=== PATIENT | female | born 1940 | race Caucasian/White ===

== ENCOUNTER 2018-06-22 02:18 | Inpatient (IN) ==
[2018-06-22 02:37] LABS: Baso # (Auto) 0.1 th/mm3 (0.0-0.2); Baso % (Auto) 0.8 % (0.0-2.0); Eos # (Auto) 0.2 th/mm3 (0.0-0.4); Hematocrit 38.6 % (35.0-46.0); Hemoglobin 12.9 gm/dL (11.6-15.3); Lymph # (Auto) 2.2 th/mm3 (1.0-4.8); Lymph % (Auto) 28.3 % (9.0-44.0); Mean Corpuscular HGB Conc 33.4 % (32.0-36.0); Mean Corpuscular Hemoglobin 31.2 pg (27.0-34.0); Mean Corpuscular Volume 93.2 fL (80.0-100.0); Mono # (Auto) 0.5 th/mm3 (0.0-0.9); Mono % (Auto) 6.8 % (0.0-8.0); Neut # (Auto) 4.6 th/mm3 (1.8-7.7); Neut % (Auto) 61.1 % (16.0-70.0); Platelet Count 273 th/mm3 (150-450); Red Blood Count 4.15 mil/mm3 (4.00-5.30); Red Cell Distribution Width 12.7 % (11.6-17.2); White Blood Count 7.6 th/mm3 (4.0-11.0)
[2018-06-22 02:43] LABS: Potassium 4.6 meq/L (3.5-5.1)
[2018-06-22 02:46] LABS: Calcium 8.7 mg/dL (8.5-10.1)
[2018-06-22 02:47] LABS: Activated Partial Thrombo Time 22.9 sec (24.3-30.1); INR 1.1 Ratio; Prothrombin Time 10.7 sec (9.8-11.6)
[2018-06-22 02:47] LABS: Carbon Dioxide 23.2 meq/L (21.0-32.0)
--- NOTE | 2018-06-22 02:57 | CT ---
EXAM DATE: 06/22/2018 2:28 AM EDT AGE/SEX: 78 years / Female INDICATIONS: Stroke alert. Left side weakness. Slurred speech. CLINICAL DATA: This is the patient's initial encounter. Patient reports that signs and symptoms have been present for 2 days and indicates a pain score of Nonresponsive. MEDICAL/SURGICAL HISTORY: Non-responsive. Non-responsive. RADIATION DOSE: 53.90 CTDI (mGy) COMPARISON: No prior exams available for comparison. TECHNIQUE: CT of the head without contrast. Using automated exposure control and adjustment of the mA and/or kV according to patient size, radiation dose was kept as low as reasonably achievable to ob tain optimal diagnostic quality images. DICOM format image data is available electronically for revi ew and comparison. FINDINGS: Hypodensities in the right posterior parietal lobe, right posterior occipital lobe, and left cerebell ar hemisphere appear to be accompanied by volume loss and likely represent old insults. No acute intr acranial hemorrhage identified. No mass effect or midline shift. Ventricles within normal limits for age. No intracranial mass lesion or evidence of acute infarct. 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 Paranasal sinuses are clear. No evidence of fracture. CONCLUSION: 1. Likely old insults in the right parietal lobe, right occipital lobe, and left cerebellar hemisphe re. 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 2. No acute intracranial findings identified. Report was called by Dr. Salvador to Dr. Souza at 0250 Electronically signed by: Darian Salvador MD 06/22/2018 2:55 AM EDT
[2018-06-22 02:58] LABS: Creatine Kinase 108 U/L (26-192)
[2018-06-22] MEDS ORDERED: Alteplase Bolus 9 MG/9 ML Syringe IV.PUSH ONE (02:58)
[2018-06-22] MEDS ORDERED: ALTEPLASE DRIP IV.SIG ONE (02:58)
--- NOTE | 2018-06-22 03:12 | XR ---
EXAM DATE: 06/22/2018 2:23 AM EDT AGE/SEX: 78 years / Female INDICATIONS: Stroke alert, short of breath. CLINICAL DATA: This is the patient's initial encounter. Patient reports that signs and symptoms have been present for 1 day and indicates a pain score of Nonresponsive. MEDICAL/SURGICAL HISTORY: Non-responsive. CABG. COMPARISON: No prior exams available for comparison. FINDINGS: Single AP view the chest. Median sternotomy wires are present. Mild patchy perihilar opaci ty in the left mid and lower lung. The lungs are otherwise clear. Cardiomediastinal silhouette withi n normal limits. No evidence of pleural effusion or pneumothorax. CONCLUSION: Minimal patchy left perihilar lung opacity. Electronically signed by: Darian Salvador MD 06/22/2018 3:11 AM EDT
[2018-06-22] MEDS: niCARdipine Inj 25 MG in Sodium Chlor 0.9% Inj 240 ML IV.CONT PRN ×4 (03:20→17:14)
--- NOTE | 2018-06-22 03:35 | CT ---
EXAM DATE: 06/22/2018 2:28 AM EDT AGE/SEX: 78 years / Female INDICATIONS: Stroke alert. Left side weakness. Slurred speech. CLINICAL DATA: This is the patient's initial encounter. Patient reports that signs and symptoms have been present for 1 day and indicates a pain score of Nonresponsive. MEDICAL/SURGICAL HISTORY: Non-responsive. Non-responsive. RADIATION DOSE: 42.29 CTDI (mGy) ; Combined studies COMPARISON: [facility], CT HEAD W/O CONTRAST, 06/22/2018. . TECHNIQUE: Volumetric scanning was performed using a multi-row detector CT scanner during bolus infu jo of 75 ml Omnipaque 350 (iohexol) nonionic water-soluble contrast as a cumulative dose for multi ple exams. The data was post processed with a variety of visualization algorithms including full vo lume maximum intensity projection, multi-planar sliding thin slab reformation, curved planar reformat ion, and surface rendering techniques. Using automated exposure control and adjustment of the mA and /or kV according to patient size, radiation dose was kept as low as reasonably achievable to obtain o ptimal diagnostic quality images. DICOM format image data is available electronically for review and comparison. FINDINGS: There is occlusion of the right internal carotid artery. The anterior cerebral arteries and middle ce rebral arteries are widely patent. Intracranial portion of the left internal carotid artery is widely patent. Bilateral vertebral arteries are patent. The left vertebral artery is dominant. There is prominent at herosclerotic disease of the proximal basilar artery. Diffuse atherosclerotic disease of the right po sterior cerebral artery is seen. There is a patent posterior communicating artery on the right. Proxi mal occlusion of the left posterior cerebral artery 3 cm from its origin. It reconstitutes distally v ia collaterals. CONCLUSION: 1. 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 2. 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 3. Occlusion of the proximal left posterior cerebral artery. It reconstitutes via collaterals. 4. Anterior cerebral arteries and middle cerebral arteries are widely patent. Electronically signed by: Darian Salvador MD 06/22/2018 3:34 AM EDT
--- NOTE | 2018-06-22 03:43 | CT ---
EXAM DATE: 06/22/2018 2:28 AM EDT AGE/SEX: 78 years / Female INDICATIONS: Stroke alert. Left side weakness. Slurred speech. CLINICAL DATA: This is the patient's initial encounter. Patient reports that signs and symptoms have been present for 1 day and indicates a pain score of Nonresponsive. MEDICAL/SURGICAL HISTORY: Non-responsive. Non-responsive. RADIATION DOSE: 42.29 CTDI (mGy) ; Combined studies COMPARISON: [facility], CTA HEAD W CONTRAST W 3D, 06/22/2018. . TECHNIQUE: Volumetric scanning was performed using a multirow detector CT scanner during bolus infus ion of 75 ml Omnipaque 350 (iohexol) nonionic water-soluble contrast as a cumulative dose for multip le exams. The data was postprocessed with a variety of visualization algorithms including full-volu me maximum intensity projection, multiplanar sliding thin-slab reformation, curved-planar reformation , and surface-rendering techniques. Using automated exposure control and adjustment of the mA and/or kV according to patient size, radiation dose was kept as low as reasonably achievable to obtain opti mal diagnostic quality images. DICOM format image data is available electronically for review and co mparison. Percent stenosis is calculated using the diameter of the stenotic region over the diameter of the nor mal distal internal carotid artery. FINDINGS: Aortic Arch: There is a three-vessel origin of the great vessels from the aorta. No evidence of ost ial narrowing Right Carotid: There is occlusion of the right internal carotid artery at its origin. The right comm on carotid artery is widely patent. External carotid artery is widely patent. Left Carotid: The common carotid artery is widely patent. Calcified plaque is seen at the carotid bu lb. No evidence of high-grade stenosis. Internal carotid artery and external carotid artery are widel y patent. Vertebrals: Left vertebral artery is dominant. There is prominent plaque and moderate narrowing of t he proximal left vertebral artery. Prominent plaque and moderate to severe narrowing of the proximal right vertebral artery near its origin. Severe narrowing of the right vertebral artery at the level o f the C6 vertebra. CONCLUSION: 1. Occlusion of the right internal carotid artery at its origin. 2. Calcified plaque at the left carotid bulb but no evidence of significant carotid stenosis on the left. 3. Prominent atherosclerotic disease of the proximal vertebral arteries. Electronically signed by: Darian Salvador MD 06/22/2018 3:41 AM EDT
[2018-06-22] MEDS ORDERED: Potassium Phosphate 500 MG Soluble Tablet PO PRN ×2 (04:19)
[2018-06-22] MEDS ORDERED: Potassium Chlor 20 mEq Premix 20 MEQ/100 ML PIGGYBACK IV.SIG PRN ×2 (04:19)
[2018-06-22] MEDS ORDERED: Bisacodyl 10 MG Supp RECTAL PRN (04:19)
[2018-06-22] MEDS ORDERED: Potassium Phosphate Inj 30 MMOL in Sodium Chlor 0.9% Inj 250 ML IV.SIG PRN (04:19)
[2018-06-22] MEDS ORDERED: hydrALAZINE HCl Inj 20 MG/ML Vial IV.PUSH PRN (04:19)
[2018-06-22] MEDS ORDERED: Magnesium Sulfate Inj 2 GM in Sodium Chlor 0.9% Inj 96 ML IV.SIG PRN (04:19)
[2018-06-22] MEDS ORDERED: Potassium Chlor 40 mEq Premix 40 MEQ/100 ML PIGGYBACK IV.SIG PRN ×2 (04:19)
[2018-06-22] MEDS ORDERED: Magnesium Sulfate Inj 4 GM in Sodium Chlor 0.9% Inj 92 ML IV.SIG PRN (04:19)
[2018-06-22] MEDS ORDERED: Magnesium Oxide 400 MG Tablet PO PRN (04:19)
[2018-06-22] MEDS ORDERED: Potassium Chloride 25 MEQ Effervescent Tablet PO PRN (04:19)
[2018-06-22] MEDS ORDERED: Acetaminophen 325 MG Tablet PO PRN (04:19)
[2018-06-22] MEDS ORDERED: Sodium Phosphate Inj 30 MMOL in Sodium Chlor 0.9% Inj 250 ML IV.SIG PRN (04:19)
--- NOTE | 2018-06-22 04:44 | ED ---
HPI General Chief complaint: Stroke Alert Stated complaint: EVAC/Stroke Allert Time Seen by Provider: 06/22/18 02:22 Source: patient and EMS Mode of arrival: EMS Limitations: no limitations and physical limitation History of Present Illness HPI Narrative: Patient presents with history of confusion of approximately 1 hour prior to arrival. Patient initially had some slurred speech and also some left-sided weakness. called EMS and they transported her here. On arrival patient was alert and functional and told this came suddenly just prior to 's calling EMS to pick her up. No history of CVA. Patient has a history of cardiac bypass, hypertension and diabetes. On presentation patient had hypertension. Related Data Home Medications Medication Instructions Recorded Confirmed insulin NPH and regular human 10 unit SUBCUT QPM 06/22/18 06/22/18 [Novolin 70/30 U-100 Insulin] insulin NPH and regular human 20 unit SUBCUT DAILY 06/22/18 06/22/18 [Novolin 70/30 U-100 Insulin] lisinopril 20 mg PO DAILY 06/22/18 06/22/18 losartan 100 mg PO DAILY 06/22/18 06/22/18 metoprolol succinate 50 mg PO DAILY 06/22/18 06/22/18 timolol maleate 1 drp OPHTHALMIC (EYE) BID 06/22/18 06/22/18 Allergies Allergy/AdvReac Type Severity Reaction Status Date / Time No Known Allergies Allergy Verified 06/22/18 02:24 Review of Systems ROS: all other systems reviewed are negative [facility] Medical History Medical History Diabetes (Acute) Glaucoma (Acute) Hypertension (Acute) Surgical History Surgical History Hx of CABG (Acute) Social History Social History Substance History: No History of Abuse Second Hand Smoke Exposure: No Smoking Status: Never smoker How Often Do You Have a Drink Containing Alcohol: Never Recent Travel in [facility] within the Last 8 Weeks: No Recent Out of Country Travel within the Last 8 Weeks: No Exam Narrative Exam Narrative: GENERAL: Alert and conversive on initial presentation SKIN: Focused skin assessment warm/dry. HEAD: Atraumatic. Normocephalic. EYES: Pupils equal and round. No scleral icterus. No injection or drainage. ENT: No nasal bleeding or discharge. Mucous membranes pink and moist. NECK: Trachea midline. No JVD. No bruit. Decrease carotid on right. CARDIOVASCULAR: Regular rate and rhythm. No murmur appreciated. RESPIRATORY: No accessory muscle use. Clear to auscultation. Breath sounds equal bilaterally. GASTROINTESTINAL: Abdomen soft, non-tender, nondistended. Hepatic and splenic margins not palpable. MUSCULOSKELETAL: No obvious deformities. No clubbing. No cyanosis. No edema. NEUROLOGICAL: Awake and alert. Limited left facial and lower extremity weakness. Significant weakness PSYCHIATRIC: Appropriate mood and affect; insight and judgment normal. However after presentation patient was last responsive and alert Course Reevaluation(s) Reevaluation #1: Patient had significant hypertension and had to reduce prior to TPA injections. CTA shows complete obstruction of right carotid. Discussed again with neurology, Time: 03:50 Reevaluation #2: Still has moderate weakness to left upper extremity : Minimal weakness to left face and lower extremity. Case discussed with Dr. Evert [place], ICU and also then Dr. Moris Nettles, interventional radiology. Patient sending emergency to ER and then ICU or radiology. However, it appears that patient is not a candidate for interventional radiology. 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 Hypertension was treated and patient was given TPA. Patient is not a candidate for interventional radiology, as per Dr. Moris Nettles Medical Screen Exam Complete: Yes Emergency Medical Condition: Yes Lab Data Result diagrams: 06/22/18 02:25 06/22/18 02:38 Lab Results 06/22/18 06/22/18 06/22/18 Range/Units 02:25 02:25 02:25 CBC w Diff Auto diff final WBC 7.6 (4.0-11.0) th/mm3 RBC 4.15 (4.00-5.30) mil/mm3 Hgb 12.9 (11.6-15.3) gm/dL Hct 38.6 (35.0-46.0) % MCV 93.2 (80.0-100.0) fL MCH 31.2 (27.0-34.0) pg MCHC 33.4 (32.0-36.0) % RDW 12.7 (11.6-17.2) % Plt Count 273 (150-450) th/mm3 MPV 8.0 (7.0-11.0) fL Neut % (Auto) 61.1 (16.0-70.0) % Lymph % (Auto) 28.3 (9.0-44.0) % Clarke % (Auto) 6.8 (0.0-8.0) % Eos % (Auto) 3.0 (0.0-4.0) % Baso % (Auto) 0.8 (0.0-2.0) % Neut # (Auto) 4.6 (1.8-7.7) th/mm3 Lymph # (Auto) 2.2 (1.0-4.8) th/mm3 Clarke # (Auto) 0.5 (0.0-0.9) th/mm3 Eos # (Auto) 0.2 (0.0-0.4) th/mm3 Baso # (Auto) 0.1 (0.0-0.2) th/mm3 WBC Differential . Differential Comment . PT 10.7 (9.8-11.6) sec INR 1.1 Ratio APTT 22.9 L (24.3-30.1) sec Fibrinogen 364 (227-377) mg/dL Sodium (136-145) meq/L Potassium (3.5-5.1) meq/L Chloride (98-107) meq/L Carbon Dioxide (21.0-32.0) meq/L Anion Gap (5-15) meq/L BUN (7-18) mg/dL Creatinine (0.50-1.00) mg/dL Estimated GFR (>89) mL/min Random Glucose (74-106) mg/dL Calcium (8.5-10.1) mg/dL Total Creatine Kinase 108 (26-192) U/L Troponin I Less than 0.02 L (0.02-0.05) ng/mL Blood Type Blood Type Recheck Antibody Screen 06/22/18 06/22/18 Range/Units 02:25 02:38 CBC w Diff WBC (4.0-11.0) th/mm3 RBC (4.00-5.30) mil/mm3 Hgb (11.6-15.3) gm/dL Hct (35.0-46.0) % MCV (80.0-100.0) fL MCH (27.0-34.0) pg MCHC (32.0-36.0) % RDW (11.6-17.2) % Plt Count (150-450) th/mm3 MPV (7.0-11.0) fL Neut % (Auto) (16.0-70.0) % Lymph % (Auto) (9.0-44.0) % Clarke % (Auto) (0.0-8.0) % Eos % (Auto) (0.0-4.0) % Baso % (Auto) (0.0-2.0) % Neut # (Auto) (1.8-7.7) th/mm3 Lymph # (Auto) (1.0-4.8) th/mm3 Clarke # (Auto) (0.0-0.9) th/mm3 Eos # (Auto) (0.0-0.4) th/mm3 Baso # (Auto) (0.0-0.2) th/mm3 WBC Differential Differential Comment PT (9.8-11.6) sec INR Ratio APTT (24.3-30.1) sec Fibrinogen (227-377) mg/dL Sodium 137 (136-145) meq/L Potassium 4.6 (3.5-5.1) meq/L Chloride 106 (98-107) meq/L Carbon Dioxide 23.2 (21.0-32.0) meq/L Anion Gap 8 (5-15) meq/L BUN 33 H (7-18) mg/dL Creatinine 1.80 H (0.50-1.00) mg/dL Estimated GFR 27 L (>89) mL/min Random Glucose 127 H (74-106) mg/dL Calcium 8.7 (8.5-10.1) mg/dL Total Creatine Kinase (26-192) U/L Troponin I (0.02-0.05) ng/mL Blood Type O Positive Blood Type Recheck Not needed Antibody Screen Negative Imaging Data Radiologist's impression: Chest X-Ray 06/22/18 02:23 CONCLUSION: Minimal patchy left perihilar lung opacity. Head CT 06/22/18 02:23 CONCLUSION: 1. Likely old insults in the right parietal lobe, right occipital lobe, and left cerebellar hemisphere. 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 2. No acute intracranial findings identified. Report was called by Dr. Salvador to Dr. Souza at 0250 Head CTA 06/22/18 02:23 CONCLUSION: 1. 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 2. 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 3. Occlusion of the proximal left posterior cerebral artery. It reconstitutes via collaterals. 4. Anterior cerebral arteries and middle cerebral arteries are widely patent. Neck CTA 06/22/18 02:23 CONCLUSION: 1. Occlusion of the right internal carotid artery at its origin. 2. Calcified plaque at the left carotid bulb but no evidence of significant carotid stenosis on the left. 3. Prominent atherosclerotic disease of the proximal vertebral arteries. Discharge Plan Discharge Disposition Patient Disposition: 02 Transfer To [facility] [place] Physicians Team ED Provider: Darian Souza Primary Care Provider: Db Cope Attending Provider: Christopher Aragon Status ED Status: Admitted Patient
--- NOTE | 2018-06-22 05:41 | P.HPCC ---
History of Present Illness Service: Critical Care Medicine Primary Care Physician: Db Cope MD Chief Complaint: altered mentation History of Present Illness: 78yF who presented to the [facility] emergency department with left-sided weakness. I spoke with the ER physician at 4:03am. Per the report from the ER physician, last seen normal time was 90 minutes prior to arrival. Documented evaluation time by ER physician was 2:22am, suggestive of [id number] time of ~1am/12:50am. Decision at that time was to administer systemic TPA. Per chart record, TPA given at 3:35am. Documented initial NIHSS was 1. CTA head/ neck shows completely occluded right ICA, but patent intracranial vessels. I discussed the case with Dr. Moris Nettles who does not see any benefit from endovascular intervention, which I agree with. I discussed the case again with [facility] and recommended emergent transfer to [facility] ICU. I was present on arrival to the ICU at 5:15am. On my initial evaluation, she was aphasic, with a dense left-sided hemiparesis, and dense left-sided neglect. My repeat bedside NIHSS was 23. I asked the nurses to repeat a formal nursing NIHSS assessment and their documented assessment was a 28. I immediately ordered STAT repeat non -contrasted head CT which demonstrates a new parietal intraparenchymal hemorrhage. I also discussed the case with Dr. Hopson who agreed with repeat head CT. Due to the patient's altered mentation, no additional information is available from her. ROS unobtainable. Inpatient Certification: I certify that the inpatient services were ordered in accordance with Medicare regulations governing the order. This includes certification that hospital inpatient services are reasonable and necessary and in the case of services not specified as inpatient-only under 42 CFR 419.22(n), that they are appropriately provided as inpatient services in accordance to with the 2-midnight benchmark under 43 CFR 412.3(e) Estimated Total Length of Stay (Days): 7 Plans for Post Hospital Care: Not yet determined Review of Systems unobtainable due to mental condition PMFSH - History History Provided By: Medical Record, Consumer Educator / EMT - Medical / Surgical Hx Neg / Unobtainable Medical Problems Denied: Unable to Obtain Surgical History: Unable to Obtain - Medical History Medical History: Medical History (Last Reviewed 06/22/18 @ 06:19 by Christopher Aragon MD) Diabetes Glaucoma Hypertension - Surgical History Surgical History: Surgical History (Last Reviewed 06/22/18 @ 06:19 by Christopher Aragon MD) Hx of CABG - Family History Family History: Family History (Last Updated 06/22/18 @ 06:19 by Christopher Aragon MD) Other Family history non-contributory - Social History I have reviewed the patient's Social History: Yes - Tobacco History Second Hand Smoke Exposure: No Tobacco Use In Past 30 Days: No Smoking Status: Never smoker - Alcohol History How Often Do You Have a Drink Containing Alcohol: Never - Substance Use History Substance History: No History of Abuse - Travel History Recent Travel in the [place] Within the Last 8 Weeks: No Recent Travel Out of the Country Within the Last 8 Weeks: No - Immunization History Tetanus Immunization: Unsure Hx Influenza Vaccine This Season: No Medications and Allergies Active Medications: Active Medications Acetaminophen (Tylenol) 650 mg PO Q6H PRN PRN Reason: TEMPERATURE > 101 F Albuterol (Duoneb Neb (Prn)) 1 ampul NEB Q2HR NEB PRN PRN Reason: WHEEZING Atorvastatin Calcium (Lipitor) 80 mg PO DAILY JOSE Bisacodyl (Dulcolax Supp) 10 mg RECTAL DAILY PRN PRN Reason: if no BM in last 24h Chlorhexidine Gluconate (Chlorhexidine 2% Cloth) 3 pack TOPICAL DAILY@0400 JOSE Stop: 06/28/18 03:59 Chlorhexidine Gluconate (Chlorhexidine 2% Cloth) 3 pack TOPICAL DAILY@0400 PRN PRN Reason: Extra cloth needed Stop: 06/28/18 03:59 Famotidine (Pepcid) 20 mg PO BID JOSE Hydralazine HCl (Apresoline Inj) 10 mg IV.PUSH Q30M PRN PRN Reason: sbp > 180 Sodium Chloride (Ns Inj) 1,000 mls @ 70 mls/hr IV.CONT .[id number] JOSE Sodium Nitroprusside 50 mg/ (Dextrose) 250 mls @ 7.63 mls/hr IV.CONT TITRATE PRN; Protocol PRN Reason: BLOOD PRESSURE MANAGEMENT Nicardipine HCl 25 mg/ Sodium (Chloride) 250 mls @ 50 mls/hr IV.CONT TITRATE PRN; Protocol PRN Reason: Per Protocol Last Titration: 06/22/18 04:35 Dose: 5 mg/hr, 50 mls/hr Magnesium Sulfate 4 gm/ Sodium (Chloride) 100 mls @ 50 mls/hr IV.SIG UNSCH PRN PRN Reason: For Magnesium 0.9 - 1.1 mg/dL Magnesium Sulfate 2 gm/ Sodium (Chloride) 100 mls @ 50 mls/hr IV.SIG UNSCH PRN PRN Reason: For Magnesium 1.2 - 1.6 mg/dL Sodium Chloride (Ns Inj) 1,000 mls @ 84 mls/hr IV.CONT .[id number] JOSE Potassium Chloride (Kcl 40 Meq Premix Inj) 40 meq in 100 mls @ 25 mls/hr IV.SIG Q2H PRN PRN Reason: For Potassium 2.8 - 3.2 mEq/L Potassium Chloride (Kcl 20 Meq Premix Inj) 20 meq in 100 mls @ 50 mls/hr IV.SIG Q2H PRN PRN Reason: For Potassium 3.3 - 3.5 mEq/L Potassium Chloride (Kcl 40 Meq Premix Inj) 40 meq in 100 mls @ 25 mls/hr IV.SIG UNSCH PRN PRN Reason: For Potassium 3.3 - 3.5 mEq/L Potassium Chloride (Kcl 20 Meq Premix Inj) 20 meq in 100 mls @ 50 mls/hr IV.SIG Q2H PRN PRN Reason: For Potassium 2.8 - 3.2 mEq/L Sodium Phosphate 30 mmol/ (Sodium Chloride) 260 mls @ 42 mls/hr IV.SIG UNSCH PRN PRN Reason: For Phosphorus < 2.5 mg/dL Potassium Phosphate 30 mmol/ (Sodium Chloride) 260 mls @ 42 mls/hr IV.SIG UNSCH PRN PRN Reason: SEE LABEL COMMENTS Labetalol HCl (Trandate Inj) 10 mg IV.PUSH Q30M PRN PRN Reason: sbp > 180 Lactulose (Lactulose Liq) 30 ml PO BID JOSE Magnesium Oxide (Mag-Ox) 800 mg PO UNSCH PRN PRN Reason: For Magnesium 1.2 - 1.6 mg/dL Methylprednisolone (Medrol) 24 mg PO DAILY JOSE Ondansetron HCl (Zofran Inj) 4 mg IV.PUSH Q6H PRN PRN Reason: NAUSEA OR VOMITING Polyethylene Glycol (Miralax) 17 gm PO BID JOSE Potassium Bicarb/Potassium Chloride (K-Lyte Cl Eff) 50 meq PO UNSCH PRN PRN Reason: For Potassium 3.3 - 3.5 mEq/L Potassium Phosphate (K-Phos Original) 2,000 mg PO Q4H PRN PRN Reason: Phosphorus Less Than 2.5 mg/dL Potassium Phosphate (K-Phos Original) 2,000 mg PO UNSCH PRN PRN Reason: SEE LABEL COMMENTS Senna/Docusate Sodium (Julisa-Colace) 1 tab PO BID JOSE Sodium Chloride (Ns Flush) 2 ml IV.FLUSH UNSCH PRN PRN Reason: FLUSH AFTER USING IV ACCESS Allergies Allergy/AdvReac Type Severity Reaction Status Date / Time No Known Allergies Allergy Verified 06/22/18 02:24 Home Medications Medication Instructions Recorded Confirmed Type insulin NPH and regular human 10 unit SUBCUT QPM 06/22/18 06/22/18 History [Novolin 70/30 U-100 Insulin] insulin NPH and regular human 20 unit SUBCUT DAILY 06/22/18 06/22/18 History [Novolin 70/30 U-100 Insulin] lisinopril 20 mg PO DAILY 06/22/18 06/22/18 History losartan 100 mg PO DAILY 06/22/18 06/22/18 History metoprolol succinate 50 mg PO DAILY 06/22/18 06/22/18 History timolol maleate 1 drp OPHTHALMIC (EYE) BID 06/22/18 06/22/18 History Results - Labs CBC & Chem 7: 06/22/18 02:25 06/22/18 02:38 Labs: Short CBC 06/22/18 Range/Units 02:25 WBC 7.6 (4.0-11.0) th/mm3 Hgb 12.9 (11.6-15.3) gm/dL Hct 38.6 (35.0-46.0) % Plt Count 273 (150-450) th/mm3 BMP 06/22/18 02:38 Sodium 137 Potassium 4.6 Chloride 106 Carbon Dioxide 23.2 BUN 33 H Creatinine 1.80 H Calcium 8.7 Cardiac Enzymes 06/22/18 Range/Units 02:25 Total Creatine Kinase 108 (26-192) U/L Troponin I Less than 0.02 L (0.02-0.05) ng/mL - Imaging Impressions Chest X-Ray 06/22/18 02:23 CONCLUSION: Minimal patchy left perihilar lung opacity. Head CT 06/22/18 02:23 CONCLUSION: 1. Likely old insults in the right parietal lobe, right occipital lobe, and left cerebellar hemisphere. 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 2. No acute intracranial findings identified. Report was called by Dr. Salvador to Dr. Souza at 0250 Head CTA 06/22/18 02:23 CONCLUSION: 1. 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 2. 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 3. Occlusion of the proximal left posterior cerebral artery. It reconstitutes via collaterals. 4. Anterior cerebral arteries and middle cerebral arteries are widely patent. Neck CTA 06/22/18 02:23 CONCLUSION: 1. Occlusion of the right internal carotid artery at its origin. 2. Calcified plaque at the left carotid bulb but no evidence of significant carotid stenosis on the left. 3. Prominent atherosclerotic disease of the proximal vertebral arteries. Exam Vital signs: Vital Signs 06/22/18 02:20 06/22/18 02:30 06/22/18 03:00 Temperature 36.6 C Pulse Rate 76 Respiratory Rate 17 Blood Pressure 273/95 H Pulse Oximetry 97 97 97 06/22/18 03:01 06/22/18 03:20 Temperature Pulse Rate 66 Respiratory Rate Blood Pressure 286/135 H Pulse Oximetry 97 Intake & Output 06/21/18 06/21/18 06/22/18 06:59 18:59 06:59 Weight 50.9 kg Narrative: gen: frail elderly female, lying in bed, in distress heent: left sided facial droop. right pupil has evidence of prior cataract surgery, 4mm, reactive. left pupil 2-3mm, reactive. mucous membranes moist. neck: no jvd. trachea midline. chest: equal chest rise. nc o2. cv: normal rate, regular rhythm. sbp 179 mmHg on my eval. abd: soft, nontender, nondistended, no guarding. extr: no edema. distal pulses 2+. neuro: RASS -2. arouses to stimulation. dense expressive aphasia. left side is rigid with complete dense hemiparesis. weakly follows commands in the right lower. withdraws in the right upper. does not follow commands in the right upper - unclear if this is a component of receptive aphasia or not. is seen to move right upper extremity spontaneously. +cough. +gag. + corneals. protects airway. dense left-sided neglect. NOAH 0/5 on left. 4/5 right. Caprini VTE Risk Assessment Caprini VTE Risk Assessment: Moderate/High Risk (score >= 2) VTE Pharmacological Exception Reason: High risk for bleeding Caprini Risk Assessment Model: Point Value = 1 Point Value = 2 Point Value = 3 Point Value = 5 Age 41-60 Minor surgery BMI > 25 kg/m2 Swollen legs Varicose veins or History of unexplained or recurrent spontaneous Oral contraceptives or hormone replacement Sepsis (< 1 month) Serious lung disease, including pneumonia (< 1 month) Abnormal pulmonary function Acute myocardial infarction Congestive heart failure (< 1 month) History of inflammatory bowel disease Medical patient at bed rest Age 61-74 Arthroscopic surgery Major open surgery (> 45 min) Laparoscopic surgery (> 45 min) Malignancy Confined to bed (> 72 hours) Immobilizing plaster cast Central venous access Age >= 75 History of VTE Family history of VTE Factor V Leiden Prothrombin [id number] Lupus anticoagulant Anticardiolipin antibodies Elevated serum homocysteine Heparin-induced thrombocytopenia Other congenital or acquired thrombophilia Stroke (< 1 month) Elective arthroplasty Hip, pelvis, or leg fracture Acute spinal cord injury (< 1 month) Prophylaxis Regimen: Total Risk Factor Score Risk Level Prophylaxis Regimen 0-1 Low Early ambulation 2 Moderate Order ONE of the following: *Sequential Compression Device (SCD) *Heparin 5000 units SQ BID 3-4 Higher Order ONE of the following medications: *Heparin 5000 units SQ TID *Enoxaparin/Lovenox 40 mg SQ daily (WT < 150 kg, CrCl > 30 mL/min) *Enoxaparin/Lovenox 30 mg SQ daily (WT < 150 kg, CrCl > 10-29 mL/min) *Enoxaparin/Lovenox 30 mg SQ BID (WT < 150 kg, CrCl > 30 mL/min) AND/OR *Sequential Compression Device (SCD) 5 or more Highest Order ONE of the following medications: *Heparin 5000 units SQ TID (Preferred with Epidurals) *Enoxaparin/Lovenox 40 mg SQ daily (WT < 150 kg, CrCl > 30 mL/min) *Enoxaparin/Lovenox 30 mg SQ daily (WT < 150 kg, CrCl > 10-29 mL/min) *Enoxaparin/Lovenox 30 mg SQ BID (WT < 150 kg, CrCl > 30 mL/min) AND *Sequential Compression Device (SCD) Assessment and Plan - Assessment and Plan Plan: Assessment: 78yF with new-onset stroke with severe deficits and now hemorrhagic conversion status post systemic TPA administration. continue frequent neuro checks and tight blood pressure control. Given bleed with active ischemic stroke , will target sbp < 160 allowing adequate perfusion pressure to penumbra while mitigating hemorrhage. critically ill. Active Problems: Acute encephalopathy Acute CVA s/p systemic TPA Acute intraparenchymal cerebral hemorrhage Acute aphasia Acute left-sided hemiparesis Hypertensive emergency Plan: neurology: Dr. Hopson consulted frequent neuro checks nicardipine for goal sbp < [address] in 24h or for decline lipids a1c 2d echo no acute intervention needed for ICA occlusion: cerebral vessels fill distally avoid long-acting sedatives stroke navigator consult nursing bedside swallow eval PT/OT/ST SCDs given TPA and hemorrhage: hold pharmacologic DVT prophylaxis and ASA. pepcid. admit to ICU. critically ill. Critical care time: 59 minutes, exclusive of separately billable procedures.
--- NOTE | 2018-06-22 06:26 | CT ---
EXAM DATE: 06/22/2018 5:28 AM EDT AGE/SEX: 78 years / Female INDICATIONS: Altered mental status after receiving TPA. CLINICAL DATA: This is the patient's initial encounter. Patient reports that signs and symptoms have been present for 1 day and indicates a pain score of Nonresponsive. MEDICAL/SURGICAL HISTORY: Non-responsive. Non-responsive. RADIATION DOSE: 56.35 CTDI (mGy) COMPARISON: [facility], CT HEAD W/O CONTRAST, 06/22/2018. . TECHNIQUE: CT of the head without contrast. Using automated exposure control and adjustment of the mA and/or kV according to patient size, radiation dose was kept as low as reasonably achievable to ob tain optimal diagnostic quality images. DICOM format image data is available electronically for revi ew and comparison. FINDINGS: There is new hyperdensity in the posterior parietal lobes bilaterally left greater than right and the posterior left occipital lobe. Findings likely represent a combination of acute parenchymal and suba rachnoid hemorrhage. Abnormality measures 2.5 x 1 cm in greatest axial dimensions on the left and 1. 0 x 0.6 cm on the right. No evidence of mass effect or midline shift. Ventricles are unchanged. No other significant interval change. Residual contrast from CTA is noted the basilar artery and dural venous sinuses. CONCLUSION: 1. New hyperdensities in the posterior parietal lobes bilaterally and posterior occipital lobe on th e left likely are presenting a combination of acute parenchymal and subarachnoid hemorrhage. No evide nce of significant mass effect or midline shift. 2. Results were discussed with Dr. Aragon. . Electronically signed by: Darian Salvador MD 06/22/2018 6:24 AM EDT
--- NOTE | 2018-06-22 06:28 | P.CONNEU ---
History of Present Illness Service: Neurology Primary Care Provider: Db Cope MD Chief Complaint: altered mentation History of Present Illness: 78 y/o admitted for stroke. brought in for left sided weakness, onset approx 1 hour prior to arrival per discussion with ER who spoke to pt's spouse. she noted to have left hemiplegia and slurred speech. based on time window, iv tpa d /w pt's spouse,. r/b alternatives d/w including 6% chance of ICH. cta showed rt ica occlusion and professional architect. IR did feel further intervention would be of benefit. tx' d to [facility] [place]. Review of Systems All other systems reviewed negative except as stated in HPI PMFSH - History History Provided By: Significant Other - Medical History Medical History: Medical History (Last Reviewed 06/22/18 @ 08:39 by Solo Reyes) Diabetes Glaucoma Hypertension - Surgical History Surgical History: Surgical History (Last Reviewed 06/22/18 @ 08:39 by Solo Reyes) Hx of CABG - Family History Family History: Family History (Last Reviewed 06/22/18 @ 08:39 by Solo Reyes) Other Family history non-contributory - Tobacco History Second Hand Smoke Exposure: No Tobacco Use In Past 30 Days: No Smoking Status: Never smoker - Alcohol History How Often Do You Have a Drink Containing Alcohol: Never - Substance Use History Substance History: No History of Abuse - Travel History Recent Travel in the [place] Within the Last 8 Weeks: No Recent Travel Out of the Country Within the Last 8 Weeks: No - Immunization History Tetanus Immunization: Unsure Hx Influenza Vaccine This Season: No Medications and Allergies Active Medications: Active Medications Acetaminophen (Tylenol) 650 mg PO Q6H PRN PRN Reason: TEMPERATURE > 101 F Albuterol (Duoneb Neb (Prn)) 1 ampul NEB Q2HR NEB PRN PRN Reason: WHEEZING Atorvastatin Calcium (Lipitor) 80 mg PO DAILY JOSE Bisacodyl (Dulcolax Supp) 10 mg RECTAL DAILY PRN PRN Reason: if no BM in last 24h Chlorhexidine Gluconate (Chlorhexidine 2% Cloth) 3 pack TOPICAL DAILY@0400 JOSE Stop: 06/28/18 03:59 Chlorhexidine Gluconate (Chlorhexidine 2% Cloth) 3 pack TOPICAL DAILY@0400 PRN PRN Reason: Extra cloth needed Stop: 06/28/18 03:59 Famotidine (Pepcid) 20 mg PO BID JOSE Hydralazine HCl (Apresoline Inj) 10 mg IV.PUSH Q30M PRN PRN Reason: sbp > 180 Sodium Chloride (Ns Inj) 1,000 mls @ 70 mls/hr IV.CONT .[id number] JSOE Sodium Nitroprusside 50 mg/ (Dextrose) 250 mls @ 7.63 mls/hr IV.CONT TITRATE PRN; Protocol PRN Reason: BLOOD PRESSURE MANAGEMENT Nicardipine HCl 25 mg/ Sodium (Chloride) 250 mls @ 50 mls/hr IV.CONT TITRATE PRN; Protocol PRN Reason: Per Protocol Last Titration: 06/22/18 04:35 Dose: 5 mg/hr, 50 mls/hr Magnesium Sulfate 4 gm/ Sodium (Chloride) 100 mls @ 50 mls/hr IV.SIG UNSCH PRN PRN Reason: For Magnesium 0.9 - 1.1 mg/dL Magnesium Sulfate 2 gm/ Sodium (Chloride) 100 mls @ 50 mls/hr IV.SIG UNSCH PRN PRN Reason: For Magnesium 1.2 - 1.6 mg/dL Sodium Chloride (Ns Inj) 1,000 mls @ 84 mls/hr IV.CONT .[id number] JOSE Potassium Chloride (Kcl 40 Meq Premix Inj) 40 meq in 100 mls @ 25 mls/hr IV.SIG Q2H PRN PRN Reason: For Potassium 2.8 - 3.2 mEq/L Potassium Chloride (Kcl 20 Meq Premix Inj) 20 meq in 100 mls @ 50 mls/hr IV.SIG Q2H PRN PRN Reason: For Potassium 3.3 - 3.5 mEq/L Potassium Chloride (Kcl 40 Meq Premix Inj) 40 meq in 100 mls @ 25 mls/hr IV.SIG UNSCH PRN PRN Reason: For Potassium 3.3 - 3.5 mEq/L Potassium Chloride (Kcl 20 Meq Premix Inj) 20 meq in 100 mls @ 50 mls/hr IV.SIG Q2H PRN PRN Reason: For Potassium 2.8 - 3.2 mEq/L Sodium Phosphate 30 mmol/ (Sodium Chloride) 260 mls @ 42 mls/hr IV.SIG UNSCH PRN PRN Reason: For Phosphorus < 2.5 mg/dL Potassium Phosphate 30 mmol/ (Sodium Chloride) 260 mls @ 42 mls/hr IV.SIG UNSCH PRN PRN Reason: SEE LABEL COMMENTS Labetalol HCl (Trandate Inj) 10 mg IV.PUSH Q30M PRN PRN Reason: sbp > 180 Lactulose (Lactulose Liq) 30 ml PO BID JOSE Magnesium Oxide (Mag-Ox) 800 mg PO UNSCH PRN PRN Reason: For Magnesium 1.2 - 1.6 mg/dL Methylprednisolone (Medrol) 24 mg PO DAILY JOSE Ondansetron HCl (Zofran Inj) 4 mg IV.PUSH Q6H PRN PRN Reason: NAUSEA OR VOMITING Polyethylene Glycol (Miralax) 17 gm PO BID JOSE Potassium Bicarb/Potassium Chloride (K-Lyte Cl Eff) 50 meq PO UNSCH PRN PRN Reason: For Potassium 3.3 - 3.5 mEq/L Potassium Phosphate (K-Phos Original) 2,000 mg PO Q4H PRN PRN Reason: Phosphorus Less Than 2.5 mg/dL Potassium Phosphate (K-Phos Original) 2,000 mg PO UNSCH PRN PRN Reason: SEE LABEL COMMENTS Senna/Docusate Sodium (Julisa-Colace) 1 tab PO BID [facility] Sodium Chloride (Ns Flush) 2 ml IV.FLUSH UNSCH PRN PRN Reason: FLUSH AFTER USING IV ACCESS Allergies Allergy/AdvReac Type Severity Reaction Status Date / Time No Known Allergies Allergy Verified 06/22/18 02:24 Home Medications Medication Instructions Recorded Confirmed Type insulin NPH and regular human 10 unit SUBCUT QPM 06/22/18 06/22/18 History [Novolin 70/30 U-100 Insulin] insulin NPH and regular human 20 unit SUBCUT DAILY 06/22/18 06/22/18 History [Novolin 70/30 U-100 Insulin] lisinopril 20 mg PO DAILY 06/22/18 06/22/18 History losartan 100 mg PO DAILY 06/22/18 06/22/18 History metoprolol succinate 50 mg PO DAILY 06/22/18 06/22/18 History timolol maleate 1 drp OPHTHALMIC (EYE) BID 06/22/18 06/22/18 History Exam Vital signs: Vital Signs 06/22/18 02:20 06/22/18 02:30 06/22/18 03:00 Temperature 97.9 F Pulse Rate 76 Respiratory Rate 17 Blood Pressure 273/95 H Pulse Oximetry 97 97 97 06/22/18 03:01 06/22/18 03:20 Temperature Pulse Rate 66 Respiratory Rate Blood Pressure 286/135 H Pulse Oximetry 97 Intake & Output 06/21/18 06/21/18 06/22/18 06:59 18:59 06:59 Weight 50.9 kg Narrative: GENERAL: in NAD, SKIN: Warm and dry. HEAD: Atraumatic. Normocephalic. EYES: Pupils equal and round. No scleral icterus. ENT: No nasal bleeding or discharge. Mucous membranes pink and moist. NECK: Trachea midline. No JVD. CARDIOVASCULAR: Regular rate and rhythm. RESPIRATORY: No accessory muscle use. GASTROINTESTINAL: Abdomen soft, non-tender, nondistended. MUSCULOSKELETAL: Extremities without clubbing, cyanosis, or edema. No obvious deformities. NEUROLOGICAL: Awake and alert.ox to self, follows simple request, od-irregular ou sluggish, rt facial weakness, vff reduced ou, left hemiplegia, rt ue in mild spastic posture PSYCHIATRIC: calm - Constitutional no acute distress - Routine HEENT Exam Head: Present: normocephalic Results - Labs CBC & Chem 7: 06/22/18 02:25 06/22/18 02:38 Labs: Laboratory Results - last 24 hr 06/22/18 06/22/18 06/22/18 02:25 02:25 02:25 CBC w Diff Auto diff final WBC 7.6 RBC 4.15 Hgb 12.9 Hct 38.6 MCV 93.2 MCH 31.2 MCHC 33.4 RDW 12.7 Plt Count 273 MPV 8.0 Neut % (Auto) 61.1 Lymph % (Auto) 28.3 [place] % (Auto) 6.8 Eos % (Auto) 3.0 Baso % (Auto) 0.8 Neut # (Auto) 4.6 Lymph # (Auto) 2.2 [place] # (Auto) 0.5 Eos # (Auto) 0.2 Baso # (Auto) 0.1 WBC Differential . Differential Comment . PT 10.7 INR 1.1 APTT 22.9 L Fibrinogen 364 Sodium Potassium Chloride Carbon Dioxide Anion Gap BUN Creatinine Estimated GFR Random Glucose Calcium Total Creatine Kinase 108 Troponin I Less than 0.02 L Blood Type Blood Type Recheck Antibody Screen 06/22/18 06/22/18 02:25 02:38 CBC w Diff WBC RBC Hgb Hct MCV MCH MCHC RDW Plt Count MPV Neut % (Auto) Lymph % (Auto) [place] % (Auto) Eos % (Auto) Baso % (Auto) Neut # (Auto) Lymph # (Auto) [place] # (Auto) Eos # (Auto) Baso # (Auto) WBC Differential Differential Comment PT INR APTT Fibrinogen Sodium 137 Potassium 4.6 Chloride 106 Carbon Dioxide 23.2 Anion Gap 8 BUN 33 H Creatinine 1.80 H Estimated GFR 27 L Random Glucose 127 H Calcium 8.7 Total Creatine Kinase Troponin I Blood Type O Positive Blood Type Recheck Not needed Antibody Screen Negative - Imaging Impressions Chest X-Ray 06/22/18 02:23 CONCLUSION: Minimal patchy left perihilar lung opacity. Head CT 06/22/18 02:23 CONCLUSION: 1. Likely old insults in the right parietal lobe, right occipital lobe, and left cerebellar hemisphere. 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 2. No acute intracranial findings identified. Report was called by Dr. Salvador to Dr. Souza at 0250 Head CTA 06/22/18 02:23 CONCLUSION: 1. 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 2. 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 3. Occlusion of the proximal left posterior cerebral artery. It reconstitutes via collaterals. 4. Anterior cerebral arteries and middle cerebral arteries are widely patent. Neck CTA 06/22/18 02:23 CONCLUSION: 1. Occlusion of the right internal carotid artery at its origin. 2. Calcified plaque at the left carotid bulb but no evidence of significant carotid stenosis on the left. 3. Prominent atherosclerotic disease of the proximal vertebral arteries. Head CT 06/22/18 05:26 CONCLUSION: 1. New hyperdensities in the posterior parietal lobes bilaterally and posterior occipital lobe on the left likely are presenting a combination of acute parenchymal and subarachnoid hemorrhage. No evidence of significant mass effect or midline shift. 2. Results were discussed with Dr. Aragon. . Review/Management - Diagnosis (1) Acute ischemic stroke Code(s): I63.9 - Cerebral infarction, unspecified Status: Acute Current Visit: Yes (2) Right internal carotid occlusion Code(s): I65.21 - Occlusion and stenosis of right carotid artery Status: Acute Current Visit: Yes (3) Intracranial atherosclerosis Code(s): I67.2 - Cerebral atherosclerosis Status: Acute Current Visit: Yes (4) Vascular dementia Code(s): F01.50 - Vascular dementia without behavioral disturbance Status: Acute Current Visit: Yes (5) HTN (hypertension) Code(s): I10 - Essential (primary) hypertension Status: Acute Current Visit : Yes (6) Chronic arterial ischemic stroke Code(s): I69.30 - Unspecified sequelae of cerebral infarction Status: Acute Current Visit: Yes - Review/Management Plan: s/p iv tpa severe intracranial stenosis/occlusion chronic small vessel dz repeat ct brain shows small chandra occipital ich recs post-tpa order set mri/mra brain no blood thinners hob elevated lipids/echo speech eval p.t tomorrow follow exam appreciate CCM
[2018-06-22] MEDS: Sod Chloride 0.9% Inj 1,000 ML IV.CONT SCH ×5 (07:27→19:52)
[2018-06-22] MEDS: Polyethylene Glycol 3350 17 GM Packet PO SCH ×2 (08:30→20:00)
[2018-06-22] MEDS: Senna/Docusate Sodium 8.6/50 MG Tablet PO SCH ×2 (08:31→20:01)
[2018-06-22] MEDS: Famotidine 20 MG Tablet PO SCH ×2 (08:31→20:00)
--- NOTE | 2018-06-22 13:13 | ECHRPT ---
Indication: CVA / TIA CONCLUSIONS Normal left ventricular size. Mild concentric left ventricular hypertrophy. The left ventricular systolic function is low normal with an estimated ejection fraction in the rang e of 50- 55%. Mild to moderate mitral valve regurgitation. Aortic valve sclerosis is present. There is trace tricuspid valve regurgitation. The estimated pulmonary arterial pressure is 56 mmHg. BP: / HR: Rhythm: Technical Quality:Fair FINDINGS LEFT VENTRICLE Normal left ventricular size. Mild concentric left ventricular hypertrophy. The left ventricular systolic function is low normal with an estimated ejection fraction in the rang e of 50- 55%. RIGHT VENTRICLE Normal right ventricular size and systolic function. LEFT ATRIUM The left atrial size is normal. RIGHT ATRIUM The right atrial size is normal. ATRIAL SEPTUM Normal atrial septal thickness without atrial level shunting by limited color doppler interrogation. AORTA The aortic root and proximal ascending aorta are normal in size on limited imaging. MITRAL VALVE Mild to moderate mitral valve regurgitation. AORTIC VALVE Trileaflet aortic valve. Aortic valve sclerosis is present. TRICUSPID VALVE There is trace tricuspid valve regurgitation. The estimated pulmonary arterial pressure is 56 mmHg. PULMONARY VALVE Trivial pulmonary valve regurgitation. VESSELS The inferior vena cava was not well visualized. PERICARDIUM No pericardial effusion. Maria Guadalupe Mack MD, FACC (Electronically Signed) Final Date:22 June 2018 13:12
--- NOTE | 2018-06-22 16:51 | MR ---
EXAM DATE: 06/22/2018 4:15 PM EDT AGE/SEX: 78 years / Female INDICATIONS: Altered mental status. Hemorrhage. CLINICAL DATA: This is the patient's initial encounter. Patient reports that signs and symptoms have been present for 1 day and indicates a pain score of 0/10. MEDICAL/SURGICAL HISTORY: Hypertension. Diabetes mellitus type II. CABG. Back surgery and righ t lung removed. COMPARISON: No prior exams available for comparison. TECHNIQUE: Multiplanar, multisequence examination of the brain was performed without contrast. FINDINGS: Cerebrum: Generalized enlargement of the CSF spaces is noted. There is [id number] ventriculome marilia and significant enlargement of basilar cisterns. Numerous cortical and subcortical areas of rest ricted diffusion are identified throughout the cerebral hemispheres. These are located in both fronta l lobes, both parietal lobes and left occipital lobe. Focal encephalomalacia consistent with an old i nfarct is identified in the right occipital lobe. Petechial hemorrhage is identified in the left occi pital infarct. There is no significant mass effect. White Matter: Is significant cerebral white matter disease is noted. There is confluent periventricu lar hyperintensity and scattered deep white matter hyperintensity especially within the right centrum semiovale. Small subcortical deep white matter infarcts are seen in the right frontal and parietal l obes. Focal area restricted diffusion is identified in the right subcortical white matter characteris tic of a deep white matter acute infarct. Posterior Fossa: Chronic ischemic disease with focal areas of encephalomalacia are identified in both cerebellar hemispheres. There is no evidence of restricted diffusion to suggest an acute cerebellar infarct. Extracranial: The visualized portions of the orbits and paranasal sinuses are unremarkable. CONCLUSION: 1. Bilateral acute cerebral cortical infarcts 2. Petechial hemorrhage in the acute left occipital lobe infarct 3. Right parietal deep white matter acute infarct 4. Advanced cerebral white matter disease with small old lacunar deep white matter infarcts most alfa racteristic of chronic microvascular ischemic change. 5. Generalized atrophy. Electronically signed by: Peter Mccormack MD 06/22/2018 4:50 PM EDT
--- NOTE | 2018-06-22 16:58 | MR ---
EXAM DATE: 06/22/2018 4:15 PM EDT AGE/SEX: 78 years / Female INDICATIONS: Altered mental status. Subarachnoid hemorrhage. CLINICAL DATA: This is the patient's initial encounter. Patient reports that signs and symptoms have been present for 1 day and indicates a pain score of 0/10. MEDICAL/SURGICAL HISTORY: Hypertension. Diabetes mellitus type II. CABG. Back surgery and mass removed from right lung. COMPARISON: No prior exams available for comparison. TECHNIQUE: 3D [id number] MRA was performed. Source images, multiplanar STS MIP, and 3D volum e MIP reconstructions were reviewed. FINDINGS: Loss of flow related enhancement is identified in both internal carotid arteries. Markedly diminished flow is identified in the right middle cerebral artery distribution. There is mar kedly restricted flow in the middle cerebral artery and cortical branches. The minimal flow is presen t appears to be originating through the anterior communicating artery from the posterior circulation via the left posterior communicating artery. Collateral flow through the left posterior communicating artery extends into the left cerebral circul ation. There is reconstitution of the internal carotid artery and supraclinoid segment with flow exte nding into the left middle cerebral artery vessels. Vertebral basilar flow is maintained there is a dominant left vertebral artery. Both vertebral arteri es are patent however the right vertebral artery demonstrates moderate stenosis within its distal cer vical segment. Luminal irregularity and moderate narrowing is identified in the proximal basilar artery. Lack of flow is identified in the left posterior cerebral artery. The right posterior cerebral artery contains high-grade stenosis in its P2 segment. 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 Electronically signed by: Peter Mccormack MD 06/22/2018 4:56 PM EDT
--- NOTE | 2018-06-22 22:20 | ECG ---
Date Performed: 06/22/2018 Time Performed: 02:44:49 PTAGE: 78 years EKG: Sinus rhythm ST DEVIATION AND MODERATE T-WAVE ABNORMALITY ABNORMAL ECG PREVIOUS TRACING : 01/23/2001 14.21 Compared to previous tracing, ST-T changes present DOCTOR: Maria Guadalupe Mack Interpretating Date/Time 06/22/2018 22:18:18
[2018-06-23] MEDS ORDERED: Dextrose 50% in Water 50 ML Vial IV.PUSH PRN ×2 (01:26→03:43)
[2018-06-23] MEDS ORDERED: Insulin NovoLOG Aspart Correctional Sugar Inj SQ SCH (01:30)
[2018-06-23] MEDS: Insulin NovoLOG Aspart Correctional Sugar Inj SQ SCH ×4 (03:53→19:06)
[2018-06-23] MEDS: Sod Chloride 0.9% Inj 1,000 ML IV.CONT SCH ×4 (03:54→19:06)
[2018-06-23] MEDS ORDERED: Chlorhexidine Gluconate 2% 1 Pack (2 Cloths) TOPICAL SCH (04:00)
[2018-06-23] MEDS ORDERED: Chlorhexidine Gluconate 2% 1 Pack (2 Cloths) TOPICAL PRN (04:00)
--- NOTE | 2018-06-23 04:41 | CT ---
EXAM DATE: 06/23/2018 4:28 AM EDT AGE/SEX: 78 years / Female INDICATIONS: Post TPA. CLINICAL DATA: This is the patient's subsequent encounter. Patient reports that signs and symptoms h ave been present for 1 day and indicates a pain score of 0/10. MEDICAL/SURGICAL HISTORY: Diabetes. Hypertension. Cerebrovascular disease. CABG. RADIATION DOSE: 56.35 CTDI (mGy) COMPARISON: [facility] [place] W/O CONTRAST, 06/22/2018. . TECHNIQUE: CT of the head without contrast. Using automated exposure control and adjustment of the mA and/or kV according to patient size, radiation dose was kept as low as reasonably achievable to ob tain optimal diagnostic quality images. DICOM format image data is available electronically for revi ew and comparison. FINDINGS: There is no intracranial hemorrhage or hematoma. No mass, mass effect or midline shift. Scattered are as of subcortical and white matter cerebral edema again seen of both cerebral hemispheres consistent with subacute infarcts. These are superimposed on chronic white matter changes. CONCLUSION: Evolving bilateral subacute cerebral infarcts. No bleed. . Electronically signed by: Johann Munoz MD 06/23/2018 4:39 AM EDT
[2018-06-23 05:17] LABS: Calcium 7.8 mg/dL (8.5-10.1); Carbon Dioxide 11.9 meq/L (21.0-32.0); Chol/HDL Ratio 3.81 Ratio; HDL Cholesterol 57.6 mg/dL (40.0-60.0); Magnesium 2.1 mg/dL (1.5-2.5); Phosphorus 4.3 mg/dL (2.5-4.9); Potassium 5.1 meq/L (3.5-5.1)
[2018-06-23 07:52] LABS: Baso % (Auto) 0.1 % (0.0-2.0); Hematocrit 33.2 % (35.0-46.0); Hemoglobin 11.1 gm/dL (11.6-15.3); Lymph % (Auto) 9.6 % (9.0-44.0); Mean Corpuscular HGB Conc 33.5 % (32.0-36.0); Mean Corpuscular Hemoglobin 31.5 pg (27.0-34.0); Mean Corpuscular Volume 93.9 fL (80.0-100.0); Mean Platelet Volume 8.6 fL (7.0-11.0); Mono # (Auto) 1.3 th/mm3 (0.0-0.9); Mono % (Auto) 12.7 % (0.0-8.0); Neut # (Auto) 7.7 th/mm3 (1.8-7.7); Neut % (Auto) 77.6 % (16.0-70.0); Platelet Count 222 th/mm3 (150-450); Red Blood Count 3.53 mil/mm3 (4.00-5.30); Red Cell Distribution Width 13.7 % (11.6-17.2); White Blood Count 9.9 th/mm3 (4.0-11.0)
--- NOTE | 2018-06-23 08:01 | P.PNNEU ---
Subjective Subjective Comments: No acute events Active Medications: Active Medications Acetaminophen (Tylenol) 650 mg PO Q6H PRN PRN Reason: TEMPERATURE > 101 F Albuterol (Duoneb Neb (Prn)) 1 ampul NEB Q2HR NEB PRN PRN Reason: WHEEZING Atorvastatin Calcium (Lipitor) 80 mg PO DAILY [facility] Last Admin: 06/22/18 08:49 Dose: Not Given Bisacodyl (Dulcolax Supp) 10 mg RECTAL DAILY PRN PRN Reason: if no BM in last 24h Chlorhexidine Gluconate (Chlorhexidine 2% Cloth) 3 pack TOPICAL DAILY@0400 [facility] Stop: 06/28/18 03:59 Last Admin: 06/23/18 03:53 Dose: 3 pack Chlorhexidine Gluconate (Chlorhexidine 2% Cloth) 3 pack TOPICAL DAILY@0400 PRN PRN Reason: Extra cloth needed Stop: 06/28/18 03:59 Dextrose (D50w Vial) 50 ml IV.PUSH UNSCH PRN PRN Reason: PER HYPOGLYCEMIA PROTOCOL Famotidine (Pepcid) 20 mg PO BID [facility] Last Admin: 06/22/18 20:00 Dose: Not Given Glucagon (Glucagon Inj) 1 mg OTHER PRN PRN PRN Reason: for Hypoglycemia Protocol Hydralazine HCl (Apresoline Inj) 10 mg IV.PUSH Q30M PRN PRN Reason: sbp > 180 Sodium Chloride (Ns Inj) 1,000 mls @ 70 mls/hr IV.CONT .[id number] [facility] Last Admin: 06/23/18 06:23 Dose: Not Given Sodium Nitroprusside 50 mg/ (Dextrose) 250 mls @ 7.63 mls/hr IV.CONT TITRATE PRN; Protocol PRN Reason: BLOOD PRESSURE MANAGEMENT Nicardipine HCl 25 mg/ Sodium (Chloride) 250 mls @ 50 mls/hr IV.CONT TITRATE PRN; Protocol PRN Reason: Per Protocol Last Titration: 06/22/18 20:15 Dose: 0 mg/hr, 0 mls/hr Magnesium Sulfate 4 gm/ Sodium (Chloride) 100 mls @ 50 mls/hr IV.SIG UNSCH PRN PRN Reason: For Magnesium 0.9 - 1.1 mg/dL Magnesium Sulfate 2 gm/ Sodium (Chloride) 100 mls @ 50 mls/hr IV.SIG UNSCH PRN PRN Reason: For Magnesium 1.2 - 1.6 mg/dL Sodium Chloride (Ns Inj) 1,000 mls @ 84 mls/hr IV.CONT .[id number] [facility] Last Admin: 06/23/18 03:54 Dose: Not Given Potassium Chloride (Kcl 40 Meq Premix Inj) 40 meq in 100 mls @ 25 mls/hr IV.SIG Q2H PRN PRN Reason: For Potassium 2.8 - 3.2 mEq/L Potassium Chloride (Kcl 20 Meq Premix Inj) 20 meq in 100 mls @ 50 mls/hr IV.SIG Q2H PRN PRN Reason: For Potassium 3.3 - 3.5 mEq/L Potassium Chloride (Kcl 40 Meq Premix Inj) 40 meq in 100 mls @ 25 mls/hr IV.SIG UNSCH PRN PRN Reason: For Potassium 3.3 - 3.5 mEq/L Potassium Chloride (Kcl 20 Meq Premix Inj) 20 meq in 100 mls @ 50 mls/hr IV.SIG Q2H PRN PRN Reason: For Potassium 2.8 - 3.2 mEq/L Sodium Phosphate 30 mmol/ (Sodium Chloride) 260 mls @ 42 mls/hr IV.SIG UNSCH PRN PRN Reason: For Phosphorus < 2.5 mg/dL Potassium Phosphate 30 mmol/ (Sodium Chloride) 260 mls @ 42 mls/hr IV.SIG UNSCH PRN PRN Reason: SEE LABEL COMMENTS Insulin Aspart (Novolog Insulin Correctional Sugar Inj) 0 unit SQ Q4H [facility]; Protocol Last Admin: 06/23/18 03:53 Dose: 12 unit Labetalol HCl (Trandate Inj) 10 mg IV.PUSH Q30M PRN PRN Reason: sbp > 180 Lactulose (Lactulose Liq) 30 ml PO BID [facility] Last Admin: 06/22/18 20:00 Dose: Not Given Magnesium Oxide (Mag-Ox) 800 mg PO UNSCH PRN PRN Reason: For Magnesium 1.2 - 1.6 mg/dL Methylprednisolone (Medrol) 24 mg PO DAILY [facility] Last Admin: 06/22/18 08:49 Dose: Not Given Ondansetron HCl (Zofran Inj) 4 mg IV.PUSH Q6H PRN PRN Reason: NAUSEA OR VOMITING Last Admin: 06/23/18 07:23 Dose: 4 mg Polyethylene Glycol (Miralax) 17 gm PO BID [facility] Last Admin: 06/22/18 20:00 Dose: Not Given Potassium Bicarb/Potassium Chloride (K-Lyte Cl Eff) 50 meq PO UNSCH PRN PRN Reason: For Potassium 3.3 - 3.5 mEq/L Potassium Phosphate (K-Phos Original) 2,000 mg PO Q4H PRN PRN Reason: Phosphorus Less Than 2.5 mg/dL Potassium Phosphate (K-Phos Original) 2,000 mg PO UNSCH PRN PRN Reason: SEE LABEL COMMENTS Senna/Docusate Sodium (Julisa-Colace) 1 tab PO BID [facility] Last Admin: 06/22/18 20:01 Dose: Not Given Sodium Chloride (Ns Flush) 2 ml IV.FLUSH UNSCH PRN PRN Reason: FLUSH AFTER USING IV ACCESS Allergies/Adverse Reactions: Allergies Allergy/AdvReac Type Severity Reaction Status Date / Time No Known Allergies Allergy Verified 06/22/18 02:24 Review of Systems unobtainable due to mental condition Physical Exam Vital signs: Vital Signs 06/22/18 08:00 06/22/18 08:16 06/22/18 08:46 Temperature 98.4 F 98.2 F 97.9 F Pulse Rate 96 H Respiratory Rate 20 Blood Pressure 146/62 H Pulse Oximetry 98 06/22/18 09:00 06/22/18 09:16 06/22/18 09:27 Temperature 97.9 F 98.4 F Pulse Rate 92 H Respiratory Rate 19 Blood Pressure 134/59 L Pulse Oximetry 96 97 06/22/18 09:46 06/22/18 10:00 06/22/18 10:16 Temperature 98.2 F 98.4 F 98.2 F Pulse Rate 96 H Respiratory Rate 18 Blood Pressure 157/69 H Pulse Oximetry 98 06/22/18 10:46 06/22/18 11:00 06/22/18 11:46 Temperature 98.0 F 98.7 F 98.5 F Pulse Rate 106 H Respiratory Rate 27 H Blood Pressure 164/75 H Pulse Oximetry 96 06/22/18 12:00 06/22/18 12:46 06/22/18 13:00 Temperature 98.1 F 98.0 F 98.0 F Pulse Rate 100 H 106 H Respiratory Rate 23 25 H 25 H Blood Pressure 148/68 H 154/69 H 154/64 H Pulse Oximetry 99 98 97 06/22/18 13:46 06/22/18 14:00 06/22/18 14:46 Temperature 98.3 F 97.9 F 98.0 F Pulse Rate 96 H Respiratory Rate 22 22 22 Blood Pressure 152/70 H 152/70 H 137/60 Pulse Oximetry 96 98 98 06/22/18 15:00 06/22/18 15:46 06/22/18 16:00 Temperature 98.2 F 98.5 F 97.9 F Pulse Rate 92 H 98 H 124 H Respiratory Rate 22 25 H 20 Blood Pressure 137/60 156/69 H 140/65 Pulse Oximetry 99 98 98 06/22/18 16:46 06/22/18 17:00 06/22/18 17:46 Temperature 97.9 F 98.4 F 98.4 F Pulse Rate 124 H 124 H 124 H Respiratory Rate 20 26 H 26 H Blood Pressure 140/65 142/63 H 142/63 H Pulse Oximetry 98 98 98 06/22/18 18:00 06/22/18 18:46 06/22/18 19:00 Temperature 98.6 F 98.6 F Pulse Rate 95 H 95 H 94 H Respiratory Rate 20 20 20 Blood Pressure 142/63 H 142/63 H 139/62 Pulse Oximetry 98 98 97 06/22/18 20:00 06/22/18 20:33 06/22/18 21:00 Temperature 98.6 F Pulse Rate 98 H 101 H Respiratory Rate 21 21 Blood Pressure 160/68 H 161/71 H Pulse Oximetry 98 99 98 06/22/18 22:00 06/22/18 23:00 06/23/18 00:00 Temperature Pulse Rate 97 H 86 90 Respiratory Rate 19 18 18 Blood Pressure 149/67 H 141/65 H 145/62 H Pulse Oximetry 98 98 98 06/23/18 01:00 06/23/18 02:00 06/23/18 03:00 Temperature Pulse Rate 96 H 100 H 100 H Respiratory Rate 18 23 23 Blood Pressure 147/67 H 169/72 H 155/67 H Pulse Oximetry 97 97 97 06/23/18 04:00 06/23/18 05:00 06/23/18 06:00 Temperature 98.9 F Pulse Rate 96 H 98 H 92 H Respiratory Rate 22 24 18 Blood Pressure 148/67 H 173/74 H 172/77 H Pulse Oximetry 97 96 97 Intake & Output 06/22/18 06/23/18 06/23/18 18:59 06:59 18:59 Intake Total 750 / 750 1999 Output Total 300 / 300 Balance 750 / 750 1700 / 1700 Intake: IV 750 / 750 1999 NS Inj 1,000 ML @ 70 mls/hr IV. 1999 CONT .[id number] JOSE Rx#: [id number] Cardene Inj 25 MG In NS Inj 240 750 / 750 ML @ 5 MG/HR 50 mls/hr IV.CONT TITRATE PRN Rx#:[id number] Output: Urine 300 / 300 Other: # Voids 2 # Incontinent Voids 1 Narrative: GENERAL: in NAD, SKIN: Warm and dry. HEAD: Atraumatic. Normocephalic. EYES: Pupils equal and round. No scleral icterus. ENT: No nasal bleeding or discharge. Mucous membranes pink and moist. NECK: Trachea midline. No JVD. CARDIOVASCULAR: Regular rate and rhythm. RESPIRATORY: No accessory muscle use. GASTROINTESTINAL: Abdomen soft, non-tender, nondistended. MUSCULOSKELETAL: Extremities without clubbing, cyanosis, or edema. No obvious deformities. NEUROLOGICAL: Drowsy partially opens eyes to tactile, left gaze preference, irregular right pupil chronic, quadriplegic right facial droop PSYCHIATRIC: calm - Constitutional no acute distress - Routine HEENT Exam Head: Present: normocephalic Objective Laboratory Results - last 24 hr 06/22/18 06/22/18 06/23/18 19:45 23:36 03:25 WBC RBC Hgb Hct MCV MCH MCHC RDW Plt Count MPV Neut % (Auto) Lymph % (Auto) [place] % (Auto) Eos % (Auto) Baso % (Auto) Neut # (Auto) Lymph # (Auto) [place] # (Auto) Eos # (Auto) Baso # (Auto) WBC Differential Differential Comment Sodium Potassium Chloride Carbon Dioxide Anion Gap BUN Creatinine Estimated GFR POC Glucose 401 H 506 H* Random Glucose Calcium Phosphorus Magnesium Triglycerides Cholesterol LDL Cholesterol, Calc HDL Cholesterol Cholesterol/HDL Ratio Nasal Screen MRSA (PCR) Not detected 06/23/18 06/23/18 06/23/18 03:26 04:21 07:27 WBC 9.9 RBC 3.53 L Hgb 11.1 L Hct 33.2 L MCV 93.9 MCH 31.5 MCHC 33.5 RDW 13.7 Plt Count 222 MPV 8.6 Neut % (Auto) 77.6 H Lymph % (Auto) 9.6 [place] % (Auto) 12.7 H Eos % (Auto) 0.0 Baso % (Auto) 0.1 Neut # (Auto) 7.7 Lymph # (Auto) 1.0 [place] # (Auto) 1.3 H Eos # (Auto) 0.0 Baso # (Auto) 0.0 WBC Differential . Differential Comment Auto diff final Sodium 140 Potassium 5.1 Chloride 109 H Carbon Dioxide 11.9 L D Anion Gap 19 H BUN 48 H Creatinine 2.05 H Estimated GFR 23 L POC Glucose 425 H Random Glucose 440 H D Calcium 7.8 L D Phosphorus 4.3 Magnesium 2.1 Triglycerides 97 Cholesterol 220 H LDL Cholesterol, Calc 143 H HDL Cholesterol 57.6 Cholesterol/HDL Ratio 3.81 Nasal Screen MRSA (PCR) Review/Management - Diagnosis (1) Acute ischemic stroke Code(s): I63.9 - Cerebral infarction, unspecified Status: Acute Current Visit: Yes (2) Right internal carotid occlusion Code(s): I65.21 - Occlusion and stenosis of right carotid artery Status: Acute Current Visit: Yes (3) Intracranial atherosclerosis Code(s): I67.2 - Cerebral atherosclerosis Status: Acute Current Visit: Yes (4) Vascular dementia Code(s): F01.50 - Vascular dementia without behavioral disturbance Status: Acute Current Visit: Yes (5) HTN (hypertension) Code(s): I10 - Essential (primary) hypertension Status: Acute Current Visit : Yes (6) Chronic arterial ischemic stroke Code(s): I69.30 - Unspecified sequelae of cerebral infarction Status: Acute Current Visit: Yes - Review/Management Plan: s/p iv tpa severe intracranial stenosis/occlusion chronic small vessel dz CT brain 06/23/2018 reviewed. Bihemispheric posterior circulation strokes. Questionable very tiny hemorrhage left occipital lobe although not mentioned by report. This is not be clinically relevant in her case. MRI demonstrated bihemispheric strokes she is been more lethargic limited movement of her extremities Called spouse on the phone no answer recs Prognosis appears poor overall with severe intracranial occlusion stenosis right ICA occlusion and bihemispheric strokes Spouse considering palliative care He chooses continued aggressive care would start aspirin 300 mg rectally She would probably require PEG tube Appreciate critical care and nursing
[2018-06-23] MEDS: Polyethylene Glycol 3350 17 GM Packet PO SCH (09:21)
[2018-06-23] MEDS: Famotidine 20 MG Tablet PO SCH (09:21)
[2018-06-23] MEDS: Senna/Docusate Sodium 8.6/50 MG Tablet PO SCH (09:22)
--- NOTE | 2018-06-23 10:09 | P.CONPAL ---
Consult Service: Palliative Care Requesting Physician: Harjeet Alanis Reason for Consult: a. To assist with evaluation and management of symptoms including: pain, debility, confusion/encephalopathy b. To assist medical decision maker(s) with: better understanding of current medical conditions; weighing benefits/burdens of medical treatment options; making medical treatment decisions. Primary Care Provider: Db Cope MD History of Present Illness History of Present Illness: This is a 78 yo female with hx DM, glaucoma, HTN, s/p CABG, who preesented 06/22 as stroke alert with 1 hour history of confusion. ON presentation she has alert but with slurred speech and left sided weakness, was hypertensive with BP 286/135. CTA showed complete obstruction right carotid along with prominent atherosclerotic disease proximal basilar artery, occlusion left proximal posterior cerebral artery that reonstitutes via collaterals. Head CT showed likely old insults parietal lobe, right occipital lobe, left crebellar hemisphere, likely old lacunar infarct left basal ganglia, no acute findings. Echo showed EF 50-55% and pulmonary arterial pressure mildly elevated 56mmHg. Her HTN was treated and pt received TPA. Pt had altered mental status after receivign TPA. Subsequent MRI head showed bilat acute cerebral cortical infarcts, petechial hemorrhage in acute left occipital lobe infract, right parietal deep white matter acute infarct, advanced cerebral white matter dz with small old lacunar infarcts characteristic of chronic microvascular ischemic change. Subsequent head CT showed new hyperdensities in the posterior parietal lobes bilaterally and psoterior occipital lobe on the left likely combo of acute parenchymal and subarachnoid hemorrhage, no evidence mass [id number] or midline shift. MRA showed bilat internal carotic artery occlusions, diminished flow right cerebral hemishpere, reconstituted flow left cerebral hemishpere and occlusion left posterior cerebral artery. Head CT 06/23, this morning, shows evolving bilateral subacute cerebral linfracts, no bleed. Neurology following, per their assessment she has bihemispheric posterior circulation strokes, questionable tiny hemorrhage left occipital lobe not clinically relevant, poor prognosis. Aggressive care would likely require PEG tube. On my eval pt is sleeping and snoring. She does not rouse/respond to verbal stimulation or sternal rub. She is grimacing. Per RN she is moving less. She does withdraw to pain. LUE rigid. She bites down during any oral care. Pt has hx type 1 DM diagnosed at age 4. reports she also has macular degeneration and poor eyesight. He reports the right eye with the irregular pupil is actually "her good eye." He is unaware of any hx of illnesses or cancers in her family. Pt unable to provide family hx 2/2 mental status. Function/Cognitive Trajectory: Per her ,m Pt was unsteady and required assistance to ambulate in the last few months. She required assistance with eating and ADLs. She was reportedly verbal and able to hold a conversation but unable to do IADLs. Review of Systems limited ROS completed to best of my ability via chart review, discussion with pt 's , RN unobtainable due to mental status Constitutional: Reports weakness Eyes: Reports blind spots, Reports loss of vision Ears, Nose, Mouth, and Throat: Denies abnormal hearing Cardiovascular: Denies chest pain Respiratory: Denies shortness of breath Musculoskeletal: Reports muscle weakness Skin/Breast: Denies yellowing of the skin Neurologic: Reports abnormal speech, Reports lack of coordination, Reports unsteadiness PMFSH - History History Provided By: Significant Other - Medical History Medical History: Medical History (Last Updated 06/23/18 @ 11:36 by Ida Ayers COSTUMER ASSISTANT) Diabetes Glaucoma Hypertension Macular degeneration - Surgical History Surgical History: Surgical History (Last Reviewed 06/23/18 @ 07:43 by Chelsea Reid) Hx of CABG - Family History Family History: Family History (Last Reviewed 06/22/18 @ 10:35 by Solo Reyes) Other Family history non-contributory - Tobacco History Second Hand Smoke Exposure: No Tobacco Use In Past 30 Days: No Smoking Status: Never smoker - Alcohol History How Often Do You Have a Drink Containing Alcohol: Never - Substance Use History Substance History: No History of Abuse - Travel History Recent Travel in the [place] Within the Last 8 Weeks: No Recent Travel Out of the Country Within the Last 8 Weeks: No - Immunization History Tetanus Immunization: Unsure Hx Influenza Vaccine This Season: No Medications and Allergies Active Medications: Active Medications Acetaminophen (Tylenol) 650 mg PO Q6H PRN PRN Reason: TEMPERATURE > 101 F Albuterol (Duoneb Neb (Prn)) 1 ampul NEB Q2HR NEB PRN PRN Reason: WHEEZING Atorvastatin Calcium (Lipitor) 80 mg PO DAILY JOSE Last Admin: 06/23/18 09:21 Dose: Not Given Bisacodyl (Dulcolax Supp) 10 mg RECTAL DAILY PRN PRN Reason: if no BM in last 24h Chlorhexidine Gluconate (Chlorhexidine 2% Cloth) 3 pack TOPICAL DAILY@0400 [facility] Stop: 06/28/18 03:59 Last Admin: 06/23/18 03:53 Dose: 3 pack Chlorhexidine Gluconate (Chlorhexidine 2% Cloth) 3 pack TOPICAL DAILY@0400 PRN PRN Reason: Extra cloth needed Stop: 06/28/18 03:59 Dextrose (D50w Vial) 50 ml IV.PUSH UNSCH PRN PRN Reason: PER HYPOGLYCEMIA PROTOCOL Famotidine (Pepcid) 20 mg PO BID [facility] Last Admin: 06/23/18 09:21 Dose: Not Given Glucagon (Glucagon Inj) 1 mg OTHER PRN PRN PRN Reason: for Hypoglycemia Protocol Hydralazine HCl (Apresoline Inj) 10 mg IV.PUSH Q30M PRN PRN Reason: sbp > 180 Sodium Chloride (Ns Inj) 1,000 mls @ 70 mls/hr IV.CONT .[id number] [facility] Last Admin: 06/23/18 06:23 Dose: Not Given Sodium Nitroprusside 50 mg/ (Dextrose) 250 mls @ 7.63 mls/hr IV.CONT TITRATE PRN; Protocol PRN Reason: BLOOD PRESSURE MANAGEMENT Nicardipine HCl 25 mg/ Sodium (Chloride) 250 mls @ 50 mls/hr IV.CONT TITRATE PRN; Protocol PRN Reason: Per Protocol Last Titration: 06/22/18 20:15 Dose: 0 mg/hr, 0 mls/hr Magnesium Sulfate 4 gm/ Sodium (Chloride) 100 mls @ 50 mls/hr IV.SIG UNSCH PRN PRN Reason: For Magnesium 0.9 - 1.1 mg/dL Magnesium Sulfate 2 gm/ Sodium (Chloride) 100 mls @ 50 mls/hr IV.SIG UNSCH PRN PRN Reason: For Magnesium 1.2 - 1.6 mg/dL Sodium Chloride (Ns Inj) 1,000 mls @ 84 mls/hr IV.CONT .[id number] [facility] Last Admin: 06/23/18 09:22 Dose: 84 mls/hr Potassium Chloride (Kcl 40 Meq Premix Inj) 40 meq in 100 mls @ 25 mls/hr IV.SIG Q2H PRN PRN Reason: For Potassium 2.8 - 3.2 mEq/L Potassium Chloride (Kcl 20 Meq Premix Inj) 20 meq in 100 mls @ 50 mls/hr IV.SIG Q2H PRN PRN Reason: For Potassium 3.3 - 3.5 mEq/L Potassium Chloride (Kcl 40 Meq Premix Inj) 40 meq in 100 mls @ 25 mls/hr IV.SIG UNSCH PRN PRN Reason: For Potassium 3.3 - 3.5 mEq/L Potassium Chloride (Kcl 20 Meq Premix Inj) 20 meq in 100 mls @ 50 mls/hr IV.SIG Q2H PRN PRN Reason: For Potassium 2.8 - 3.2 mEq/L Sodium Phosphate 30 mmol/ (Sodium Chloride) 260 mls @ 42 mls/hr IV.SIG UNSCH PRN PRN Reason: For Phosphorus < 2.5 mg/dL Potassium Phosphate 30 mmol/ (Sodium Chloride) 260 mls @ 42 mls/hr IV.SIG UNSCH PRN PRN Reason: SEE LABEL COMMENTS Insulin Aspart (Novolog Insulin Correctional Sugar Inj) 0 unit SQ Q4H [facility]; Protocol Last Admin: 06/23/18 09:21 Dose: 10 unit Labetalol HCl (Trandate Inj) 10 mg IV.PUSH Q30M PRN PRN Reason: sbp > 180 Lactulose (Lactulose Liq) 30 ml PO BID [facility] Last Admin: 06/23/18 09:21 Dose: Not Given Magnesium Oxide (Mag-Ox) 800 mg PO UNSCH PRN PRN Reason: For Magnesium 1.2 - 1.6 mg/dL Methylprednisolone (Medrol) 24 mg PO DAILY [facility] Last Admin: 06/23/18 09:21 Dose: Not Given Ondansetron HCl (Zofran Inj) 4 mg IV.PUSH Q6H PRN PRN Reason: NAUSEA OR VOMITING Last Admin: 06/23/18 07:23 Dose: 4 mg Polyethylene Glycol (Miralax) 17 gm PO BID [facility] Last Admin: 06/23/18 09:21 Dose: Not Given Potassium Bicarb/Potassium Chloride (K-Lyte Cl Eff) 50 meq PO UNSCH PRN PRN Reason: For Potassium 3.3 - 3.5 mEq/L Potassium Phosphate (K-Phos Original) 2,000 mg PO Q4H PRN PRN Reason: Phosphorus Less Than 2.5 mg/dL Potassium Phosphate (K-Phos Original) 2,000 mg PO UNSCH PRN PRN Reason: SEE LABEL COMMENTS Senna/Docusate Sodium (Julisa-Colace) 1 tab PO BID JOSE Last Admin: 06/23/18 09:22 Dose: Not Given Sodium Chloride (Ns Flush) 2 ml IV.FLUSH UNSCH PRN PRN Reason: FLUSH AFTER USING IV ACCESS Allergies Allergy/AdvReac Type Severity Reaction Status Date / Time No Known Allergies Allergy Verified 06/22/18 02:24 Home Medications Medication Instructions Recorded Confirmed Type insulin NPH and regular human 10 unit SUBCUT QPM 06/22/18 06/22/18 History [Novolin 70/30 U-100 Insulin] insulin NPH and regular human 20 unit SUBCUT DAILY 06/22/18 06/22/18 History [Novolin 70/30 U-100 Insulin] lisinopril 20 mg PO DAILY 06/22/18 06/22/18 History losartan 100 mg PO DAILY 06/22/18 06/22/18 History metoprolol succinate 50 mg PO DAILY 06/22/18 06/22/18 History timolol maleate 1 drp OPHTHALMIC (EYE) BID 06/22/18 06/22/18 History Advance Directives Living Will: Yes (11/2016 standard verbiage) Healthcare Surrogate: No Ethical and Legal Issues: Patient is not currently capacitated to make medical decisions and it is unclear if she will regain that capacity. Per [place] statutes proxy decision making would fall to her Physical Exam Vital Signs: Vital Signs - 24 hr 06/22/18 09:46 06/22/18 10:00 06/22/18 10:16 Temperature 98.2 F 98.4 F 98.2 F Pulse Rate 96 H Respiratory Rate 18 Blood Pressure 157/69 H Pulse Oximetry 98 06/22/18 10:46 06/22/18 11:00 06/22/18 11:46 Temperature 98.0 F 98.7 F 98.5 F Pulse Rate 106 H Respiratory Rate 27 H Blood Pressure 164/75 H Pulse Oximetry 96 06/22/18 12:00 06/22/18 12:46 06/22/18 13:00 Temperature 98.1 F 98.0 F 98.0 F Pulse Rate 100 H 106 H Respiratory Rate 23 25 H 25 H Blood Pressure 148/68 H 154/69 H 154/64 H Pulse Oximetry 99 98 97 06/22/18 13:46 06/22/18 14:00 06/22/18 14:46 Temperature 98.3 F 97.9 F 98.0 F Pulse Rate 96 H Respiratory Rate 22 22 22 Blood Pressure 152/70 H 152/70 H 137/60 Pulse Oximetry 96 98 98 06/22/18 15:00 06/22/18 15:46 06/22/18 16:00 Temperature 98.2 F 98.5 F 97.9 F Pulse Rate 92 H 98 H 124 H Respiratory Rate 22 25 H 20 Blood Pressure 137/60 156/69 H 140/65 Pulse Oximetry 99 98 98 06/22/18 16:46 06/22/18 17:00 06/22/18 17:46 Temperature 97.9 F 98.4 F 98.4 F Pulse Rate 124 H 124 H 124 H Respiratory Rate 20 26 H 26 H Blood Pressure 140/65 142/63 H 142/63 H Pulse Oximetry 98 98 98 06/22/18 18:00 06/22/18 18:46 06/22/18 19:00 Temperature 98.6 F 98.6 F Pulse Rate 95 H 95 H 94 H Respiratory Rate 20 20 20 Blood Pressure 142/63 H 142/63 H 139/62 Pulse Oximetry 98 98 97 06/22/18 20:00 06/22/18 20:33 06/22/18 21:00 Temperature 98.6 F Pulse Rate 98 H 101 H Respiratory Rate 21 21 Blood Pressure 160/68 H 161/71 H Pulse Oximetry 98 99 98 06/22/18 22:00 06/22/18 23:00 06/23/18 00:00 Temperature Pulse Rate 97 H 86 90 Respiratory Rate 19 18 18 Blood Pressure 149/67 H 141/65 H 145/62 H Pulse Oximetry 98 98 98 06/23/18 01:00 06/23/18 02:00 06/23/18 03:00 Temperature Pulse Rate 96 H 100 H 100 H Respiratory Rate 18 23 23 Blood Pressure 147/67 H 169/72 H 155/67 H Pulse Oximetry 97 97 97 06/23/18 04:00 06/23/18 05:00 06/23/18 06:00 Temperature 98.9 F Pulse Rate 96 H 98 H 92 H Respiratory Rate 22 24 18 Blood Pressure 148/67 H 173/74 H 172/77 H Pulse Oximetry 97 96 97 06/23/18 08:00 Temperature 98.7 F Pulse Rate 88 Respiratory Rate 22 Blood Pressure 168/74 H Pulse Oximetry 97 I&O: Intake & Output 06/21/18 06/22/18 06/23/18 06/24/18 06:59 06:59 06:59 06:59 Intake Total 41.2 / 41.2 2750 / 2750 1000 / 1000 Output Total 300 / 300 Balance 41.2 / 41.2 2450 / 2450 1000 / 1000 Weight 50.9 kg Physical Exam: CONSTITUTIONAL/GENERAL: This is an adequately nourished patient, in no apparent distress. TUBES/LINES/DRAINS: PIV SKIN: No jaundice, rashes, or lesions. Wound LLE. No wounds seen anteriorly. Skin temperature appropriate. Not diaphoretic. HEAD: Atraumatic. Normocephalic. EYES:right pupil oval and irregular shaped. left pupil round and reactive but sluggish. No scleral icterus. No injection or drainage. Fundi not examined. ENT: unable to assess hearing as pt does not respond to name beign called. Nose without bleeding or purulent drainage. NECK: Trachea midline. Supple, nontender. CARDIOVASCULAR: RRR without murmurs, gallops, or rubs. No JVD. Peripheral pulses symmetric. RESPIRATORY/CHEST: Symmetric, unlabored respirations. Clear to auscultation. Breath sounds equal bilaterally. No wheezes, rales, or rhonchi. GASTROINTESTINAL: Abdomen soft, non-tender, nondistended. No hepato-splenomegaly , or palpable masses. Bowel sounds present. GENITOURINARY: Without palpable bladder distension. MUSCULOSKELETAL: Extremities without clubbing, cyanosis, or edema. No mottling or clubbing. NEUROLOGICAL:does not rouse to verbal or physical stimuli, no meaningful interaction. PSYCHIATRIC: unable to assess 2/2 mental status Diagnostic Tests Laboratory: Laboratory Results - last 72 hr 06/22/18 06/22/18 06/22/18 02:25 02:25 02:25 CBC w Diff Auto diff final WBC 7.6 RBC 4.15 Hgb 12.9 Hct 38.6 MCV 93.2 MCH 31.2 MCHC 33.4 RDW 12.7 Plt Count 273 MPV 8.0 Neut % (Auto) 61.1 Lymph % (Auto) 28.3 [place] % (Auto) 6.8 Eos % (Auto) 3.0 Baso % (Auto) 0.8 Neut # (Auto) 4.6 Lymph # (Auto) 2.2 [place] # (Auto) 0.5 Eos # (Auto) 0.2 Baso # (Auto) 0.1 WBC Differential . Differential Comment . PT 10.7 INR 1.1 APTT 22.9 L Fibrinogen 364 Sodium Potassium Chloride Carbon Dioxide Anion Gap BUN Creatinine Estimated GFR POC Glucose Random Glucose Calcium Phosphorus Magnesium Total Creatine Kinase 108 Troponin I Less than 0.02 L Triglycerides Cholesterol LDL Cholesterol, Calc HDL Cholesterol Cholesterol/HDL Ratio Nasal Screen MRSA (PCR) Blood Type Blood Type Recheck Antibody Screen 06/22/18 06/22/18 06/22/18 02:25 02:38 19:45 CBC w Diff WBC RBC Hgb Hct MCV MCH MCHC RDW Plt Count MPV Neut % (Auto) Lymph % (Auto) [place] % (Auto) Eos % (Auto) Baso % (Auto) Neut # (Auto) Lymph # (Auto) [place] # (Auto) Eos # (Auto) Baso # (Auto) WBC Differential Differential Comment PT INR APTT Fibrinogen Sodium 137 Potassium 4.6 Chloride 106 Carbon Dioxide 23.2 Anion Gap 8 BUN 33 H Creatinine 1.80 H Estimated GFR 27 L POC Glucose Random Glucose 127 H Calcium 8.7 Phosphorus Magnesium Total Creatine Kinase Troponin I Triglycerides Cholesterol LDL Cholesterol, Calc HDL Cholesterol Cholesterol/HDL Ratio Nasal Screen MRSA (PCR) Not detected Blood Type O Positive Blood Type Recheck Not needed Antibody Screen Negative 06/22/18 06/23/18 06/23/18 23:36 03:25 03:26 CBC w Diff WBC RBC Hgb Hct MCV MCH MCHC RDW Plt Count MPV Neut % (Auto) Lymph % (Auto) [place] % (Auto) Eos % (Auto) Baso % (Auto) Neut # (Auto) Lymph # (Auto) [place] # (Auto) Eos # (Auto) Baso # (Auto) WBC Differential Differential Comment PT INR APTT Fibrinogen Sodium Potassium Chloride Carbon Dioxide Anion Gap BUN Creatinine Estimated GFR POC Glucose 401 H 506 H* 425 H Random Glucose Calcium Phosphorus Magnesium Total Creatine Kinase Troponin I Triglycerides Cholesterol LDL Cholesterol, Calc HDL Cholesterol Cholesterol/HDL Ratio Nasal Screen MRSA (PCR) Blood Type Blood Type Recheck Antibody Screen 06/23/18 06/23/18 06/23/18 04:21 07:27 08:59 CBC w Diff WBC 9.9 RBC 3.53 L Hgb 11.1 L Hct 33.2 L MCV 93.9 MCH 31.5 MCHC 33.5 RDW 13.7 Plt Count 222 MPV 8.6 Neut % (Auto) 77.6 H Lymph % (Auto) 9.6 [place] % (Auto) 12.7 H Eos % (Auto) 0.0 Baso % (Auto) 0.1 Neut # (Auto) 7.7 Lymph # (Auto) 1.0 [place] # (Auto) 1.3 H Eos # (Auto) 0.0 Baso # (Auto) 0.0 WBC Differential . Differential Comment Auto diff final PT INR APTT Fibrinogen Sodium 140 Potassium 5.1 Chloride 109 H Carbon Dioxide 11.9 L D Anion Gap 19 H BUN 48 H Creatinine 2.05 H Estimated GFR 23 L POC Glucose 305 H Random Glucose 440 H D Calcium 7.8 L D Phosphorus 4.3 Magnesium 2.1 Total Creatine Kinase Troponin I Triglycerides 97 Cholesterol 220 H LDL Cholesterol, Calc 143 H HDL Cholesterol 57.6 Cholesterol/HDL Ratio 3.81 Nasal Screen MRSA (PCR) Blood Type Blood Type Recheck Antibody Screen Result Diagrams: 06/23/18 07:27 06/23/18 04:21 Imaging: ITS Impressions Chest X-Ray 06/22/18 02:23 CONCLUSION: Minimal patchy left perihilar lung opacity. Head CTA 06/22/18 02:23 CONCLUSION: 1. 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 2. 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 3. Occlusion of the proximal left posterior cerebral artery. It reconstitutes via collaterals. 4. Anterior cerebral arteries and middle cerebral arteries are widely patent. Neck CTA 06/22/18 02:23 CONCLUSION: 1. Occlusion of the right internal carotid artery at its origin. 2. Calcified plaque at the left carotid bulb but no evidence of significant carotid stenosis on the left. 3. Prominent atherosclerotic disease of the proximal vertebral arteries. Head MRI 06/22/18 04:20 CONCLUSION: 1. Bilateral acute cerebral cortical infarcts 2. Petechial hemorrhage in the acute left occipital lobe infarct 3. Right parietal deep white matter acute infarct 4. Advanced cerebral white matter disease with small old lacunar deep white matter infarcts most characteristic of chronic microvascular ischemic change. 5. Generalized atrophy. 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 Head CT 06/23/18 03:01 CONCLUSION: Evolving bilateral subacute cerebral infarcts. No bleed. . Patient/Family Conference Present at Family Conference: pt's Dashawn Family Conference Location: Telephone Issues Discussed: * Palliative care role, purpose, approach * Additional medical, psychosocial, and spiritual history * Patients general health, functional status, and cognitive changes in the months leading up to the current hospitalization - appears she had recent decline in the last few months * family understanding of the current medical problems * family understanding of prognosis * Patients goals of care as best understood from advance directives and/or conversations * Current medical treatment options and benefits/burdens of those options * Likely scenarios comparing ongoing aggressive care with a transition to comfort measures only * code status * introduced hospice * Questions answered to the best of my ability * Palliative care contact information provided Goals are comfort oriented. became quite tearful and overwhelmed but has good insight. reaffirms DNR and acknowledges 's living will and prior conversations where she indicated she would not want tube feeding or to have her life prolonged artificially. He is agreeable to hospice consult. Assessment and Plan - Disease Oriented Problem List (1) Acute ischemic stroke (2) Right internal carotid occlusion (3) Chronic arterial ischemic stroke (4) Diabetes (5) HTN (hypertension) (6) Intracranial atherosclerosis - Symptom Scale (1) Debility 0-10 Scale: Unable to quantify Pertinent Non-Medical Issues: Psychosocial: . Originally from [place]. Been in [place] since 1998, she and her originally came down as snowbirds and then decided to stay. They do not have family locally. No children. Spiritual: none Legal: Patient is not currently capacitated to make medical decisions and it is unclear if she will regain that capacity. Per [place] statutes proxy decision making would fall to her Ethical issues impacting care: none Important Contacts: Dashawn Goldberg [phone] Prognosis: 78 yo female presented 06/22 with left side weakness, slurred speech. Was given TPA, noted to have AMS subsequently and imaging indicated evolving bilat strokes. Pt has trajectory of decline over the past months, as of few months ago she was starting to require assistance with ADLs and ambulating. Given her hx type I diabetes and pre existing old infarcts seen on imaging, it is possible she has been having strokes and likely she could continue to do so. Prognosis is poor. Code Status: No Code DNR Plan: - LEGAL DECISION MAKER -Patient is not currently capacitated to make medical decisions and it is unclear if she will regain that capacity. Per [place] statutes proxy decision making would fall to her - CODE STATUS- no code/DNR. - GOALS - Goals are comfort oriented. became quite tearful and overwhelmed but has good insight. reaffirms DNR and acknowledges ' s living will and prior conversations where she indicated she would not want tube feeding or to have her life prolonged artificially. He is agreeable to hospice consult. - SYMPTOMS - * debility - 2/2 bilat hemispheric strokes. has been "unsteady" and requiring assistance for last few months. ?old infarcts. Per ST pureed diet and nectar thick liquid however per RN pt bites down with oral care. pt too lethargic to eat and if she did would be risk for aspiration. she would have this risk even with feeding tube. unclear if mental status will improve. * pain - risk for pain 2/2 lines, ?headache? neuropathy 2/2 DM?. unclear source pain. pt appears to be mildly uncomfortable. grimace noted by myself and RN. nontender on exam. no recs at this time * confusion/encephalopathy - 2/2 CVA. poss underlying dementia as well. past few months pt requiring more assistance, unable to balance checkbook for "last 20 years" per . no recs at this time - hospice consult pending - Palliative care will continue to follow during hospital course as condition evolves, to assist patient/decision-maker with understanding of medical conditions, weighing benefits/burdens of treatment options, for clarification of goals of treatment. Additionally will assist with any symptoms of palliative concern Appreciation Thank you for the opportunity to participate in the care of Alayna Goldberg.
[2018-06-23] MEDS: Labetalol HCl Inj 100 MG/20 ML Vial IV.PUSH PRN ×3 (11:31→19:08)
--- NOTE | 2018-06-23 14:37 | P.DS ---
Date of admission: 06/22/18 04:10 Primary care physician: Db Cope MD Attending physician on discharge: Harjeet Alanis Brief History from admission: 78yF who presented to the [place] emergency department with left-sided weakness. I spoke with the ER physician at 4:03am. Per the report from the ER physician, last seen normal time was 90 minutes prior to arrival. Documented evaluation time by ER physician was 2:22am, suggestive of [id number] time of ~1am/12:50am. Decision at that time was to administer systemic TPA. Per chart record, TPA given at 3:35am. Documented initial NIHSS was 1. CTA head/ neck shows completely occluded right ICA, but patent intracranial vessels. I discussed the case with Dr. Moris Nettles who does not see any benefit from endovascular intervention, which I agree with. I discussed the case again with [place] [facility] and recommended emergent transfer to [facility] ICU. I was present on arrival to the ICU at 5:15am. On my initial evaluation, she was aphasic, with a dense left-sided hemiparesis, and dense left-sided neglect. My repeat bedside NIHSS was 23. I asked the nurses to repeat a formal nursing NIHSS assessment and their documented assessment was a 28. I immediately ordered STAT repeat non -contrasted head CT which demonstrates a new parietal intraparenchymal hemorrhage. I also discussed the case with Dr. Hopson who agreed with repeat head CT. Due to the patient's altered mentation, no additional information is available from her. ROS unobtainable. Patient update on day of discharge: Continued deterioration and CAT scan evidence of intracranial hemorrhage. Family has elected for hospice care center. Arrangements being made now for transfer. DS: Diagnosis - Discharge Diagnosis (1) HTN (hypertension) Status: Acute (2) Acute ischemic stroke Status: Acute (3) Right internal carotid occlusion Status: Acute (4) Intracranial atherosclerosis Status: Acute DS: Summary Hospital Course: See last day summary. - Time Spent with Patient Total time spent providing and/or coordinating discharge services: Greater than 30 minutes - Quality: Stroke Last date observed well: 06/21/18 Last time observed well: 23:30 Exam Vital signs: Vital Signs 06/22/18 14:46 06/22/18 15:00 06/22/18 15:46 Temperature 98.0 F 98.2 F 98.5 F Pulse Rate 92 H 98 H Respiratory Rate 22 22 25 H Blood Pressure 137/60 137/60 156/69 H Pulse Oximetry 98 99 98 06/22/18 16:00 06/22/18 16:46 06/22/18 17:00 Temperature 97.9 F 97.9 F 98.4 F Pulse Rate 124 H 124 H 124 H Respiratory Rate 20 20 26 H Blood Pressure 140/65 140/65 142/63 H Pulse Oximetry 98 98 98 06/22/18 17:46 06/22/18 18:00 06/22/18 18:46 Temperature 98.4 F 98.6 F 98.6 F Pulse Rate 124 H 95 H 95 H Respiratory Rate 26 H 20 20 Blood Pressure 142/63 H 142/63 H 142/63 H Pulse Oximetry 98 98 98 06/22/18 19:00 06/22/18 20:00 06/22/18 20:33 Temperature 98.6 F Pulse Rate 94 H 98 H Respiratory Rate 20 21 Blood Pressure 139/62 160/68 H Pulse Oximetry 97 98 99 06/22/18 21:00 06/22/18 22:00 06/22/18 23:00 Temperature Pulse Rate 101 H 97 H 86 Respiratory Rate 21 19 18 Blood Pressure 161/71 H 149/67 H 141/65 H Pulse Oximetry 98 98 98 06/23/18 00:00 06/23/18 01:00 06/23/18 02:00 Temperature Pulse Rate 90 96 H 100 H Respiratory Rate 18 18 23 Blood Pressure 145/62 H 147/67 H 169/72 H Pulse Oximetry 98 97 97 06/23/18 03:00 06/23/18 04:00 06/23/18 05:00 Temperature 98.9 F Pulse Rate 100 H 96 H 98 H Respiratory Rate 23 22 24 Blood Pressure 155/67 H 148/67 H 173/74 H Pulse Oximetry 97 97 96 06/23/18 06:00 06/23/18 08:00 06/23/18 09:00 Temperature 98.7 F Pulse Rate 92 H 88 98 H Respiratory Rate 18 22 22 Blood Pressure 172/77 H 168/74 H 184/77 H Pulse Oximetry 97 97 96 06/23/18 10:00 06/23/18 11:00 06/23/18 12:00 Temperature 98.1 F Pulse Rate 90 101 H 78 Respiratory Rate 21 21 23 Blood Pressure 172/73 H 199/82 H 146/72 H Pulse Oximetry 96 97 98 Intake & Output 06/22/18 06/23/18 06/23/18 18:59 06:59 18:59 Intake Total 750 / 750 1999 / 1999 1000 / 1000 Output Total 300 / 300 Balance 750 / 750 1700 / 1700 1000 / 1000 Intake: IV 750 / 750 1999 / 1999 1000 / 1000 NS Inj 1,000 ML @ 84 mls/hr IV. 1999 1000 / 1000 CONT .[id number] JOSE Rx#: [id number] Cardene Inj 25 MG In NS Inj 240 750 / 750 ML @ 5 MG/HR 50 mls/hr IV.CONT TITRATE PRN Rx#:[id number] Output: Urine 300 / 300 Other: # Voids 2 # Incontinent Voids 1 Narrative: Obtunded, unresponsive, struggling with secretions. Results Procedures completed during hospitalization: see narrative. Labs on day of discharge: Labs from last 24 hours 06/23/18 06/23/18 06/23/18 11:12 08:59 07:27 WBC 9.9 RBC 3.53 L Hgb 11.1 L Hct 33.2 L MCV 93.9 MCH 31.5 MCHC 33.5 RDW 13.7 Plt Count 222 MPV 8.6 Neut % (Auto) 77.6 H Lymph % (Auto) 9.6 [place] % (Auto) 12.7 H Eos % (Auto) 0.0 Baso % (Auto) 0.1 Neut # (Auto) 7.7 Lymph # (Auto) 1.0 [place] # (Auto) 1.3 H Eos # (Auto) 0.0 Baso # (Auto) 0.0 WBC Differential . Differential Comment Auto diff final Sodium Potassium Chloride Carbon Dioxide Anion Gap BUN Creatinine Estimated GFR POC Glucose 289 H 305 H Random Glucose Hemoglobin A1c Calcium Phosphorus Magnesium Triglycerides Cholesterol LDL Cholesterol, Calc HDL Cholesterol Cholesterol/HDL Ratio Nasal Screen MRSA (PCR) 06/23/18 06/23/18 06/23/18 04:21 04:21 03:26 WBC RBC Hgb Hct MCV MCH MCHC RDW Plt Count MPV Neut % (Auto) Lymph % (Auto) [place] % (Auto) Eos % (Auto) Baso % (Auto) Neut # (Auto) Lymph # (Auto) [place] # (Auto) Eos # (Auto) Baso # (Auto) WBC Differential Differential Comment Sodium 140 Potassium 5.1 Chloride 109 H Carbon Dioxide 11.9 L D Anion Gap 19 H BUN 48 H Creatinine 2.05 H Estimated GFR 23 L POC Glucose 425 H Random Glucose 440 H D Hemoglobin A1c Pending Calcium 7.8 L D Phosphorus 4.3 Magnesium 2.1 Triglycerides 97 Cholesterol 220 H LDL Cholesterol, Calc 143 H HDL Cholesterol 57.6 Cholesterol/HDL Ratio 3.81 Nasal Screen MRSA (PCR) 06/23/18 06/22/18 06/22/18 03:25 23:36 19:45 WBC RBC Hgb Hct MCV MCH MCHC RDW Plt Count MPV Neut % (Auto) Lymph % (Auto) [place] % (Auto) Eos % (Auto) Baso % (Auto) Neut # (Auto) Lymph # (Auto) [place] # (Auto) Eos # (Auto) Baso # (Auto) WBC Differential Differential Comment Sodium Potassium Chloride Carbon Dioxide Anion Gap BUN Creatinine Estimated GFR POC Glucose 506 H* 401 H Random Glucose Hemoglobin A1c Calcium Phosphorus Magnesium Triglycerides Cholesterol LDL Cholesterol, Calc HDL Cholesterol Cholesterol/HDL Ratio Nasal Screen MRSA (PCR) Not detected - Impressions ITS Impressions Chest X-Ray 06/22/18 02:23 CONCLUSION: Minimal patchy left perihilar lung opacity. Head CTA 06/22/18 02:23 CONCLUSION: 1. 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 2. 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 3. Occlusion of the proximal left posterior cerebral artery. It reconstitutes via collaterals. 4. Anterior cerebral arteries and middle cerebral arteries are widely patent. Neck CTA 06/22/18 02:23 CONCLUSION: 1. Occlusion of the right internal carotid artery at its origin. 2. Calcified plaque at the left carotid bulb but no evidence of significant carotid stenosis on the left. 3. Prominent atherosclerotic disease of the proximal vertebral arteries. Head MRI 06/22/18 04:20 CONCLUSION: 1. Bilateral acute cerebral cortical infarcts 2. Petechial hemorrhage in the acute left occipital lobe infarct 3. Right parietal deep white matter acute infarct 4. Advanced cerebral white matter disease with small old lacunar deep white matter infarcts most characteristic of chronic microvascular ischemic change. 5. Generalized atrophy. 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 Head CT 06/23/18 03:01 CONCLUSION: Evolving bilateral subacute cerebral infarcts. No bleed. . Discharge Plan - Discharge Disposition Patient Disposition: [facility] Hosp[facility] Facility - Discharge Condition Condition: Fair - Discharge Order Discharge Orders: Discharge Order (Routine); Ordered 06/23/18 Ordered By: Harjeet Alanis - Physicians Team Primary Care Provider: Db Cope Attending Provider: Christopher Aragon Other Providers: Bob Bhatt MD, PhD ; Anish Oconnell ; Luz Mayen MD
[2018-06-23 17:27] LABS: Hemoglobin A1c 8.2 % (4.3-6.0)
[2018-06-23 19:02] VITALS: BP 162/69; PULSE 76; RESP 15; O2SAT 94
[2018-06-24] MEDS ORDERED: Famotidine 20 MG Tablet PO SCH (09:00)
[2018-06-30 07:48] VITALS: TEMP 98.1
== END 2018-06-23 19:20 | disposition hospice, inpatient (51) ==
LOC: PHED 02:18 → PHEDA 04:10 → N03 05:17
PROVIDERS: ADMIT Internal Medicine Critical Care Medicine; ATTEND Internal Medicine Critical Care Medicine